=== PATIENT | male | born 1955 | race Caucasian/White ===

== ENCOUNTER → 2022-12-29 09:06 | Outpatient (REF) | payer MEDICARE, OTHER, SELFPAY | LOC: SDSPAT 09:06 | PROVIDERS: ATTENDING PHYSICIAN Surgery; FAMILY PHYSICIAN Internal Medicine; OTHER PHYSICIAN Internal Medicine Cardiovascular Disease | DX: L08.82 Omphalitis not of newborn (principal) | CPT/HCPCS: 36415; 93005 ==

== ENCOUNTER → 2023-04-06 07:35 | Outpatient (REF) | payer MEDICARE, OTHER, SELFPAY | LOC: MRI 07:35 | PROVIDERS: ATTENDING PHYSICIAN Internal Medicine | DX: R22.2 Localized swelling, mass and lump, trunk (principal) | CPT/HCPCS: 72197; A9575 ==

== ENCOUNTER → 2023-04-18 11:24 | Outpatient (REF) | payer MEDICARE, OTHER, SELFPAY ==
[2023-04-18 12:50] LABS: Glycohemoglobin (HgbA1c) 10.2 % (4.0-5.6)
[2023-04-18 12:54] LABS: ALT (SGPT) 23 U/L (0-50); AST (SGOT) 32 U/L (17-59); Albumin 3.9 g/dl (3.5-5.0); Alkaline Phosphatase 165 U/L (38-126); Blood Urea Nitrogen 8 mg/dl (9-20); Blood Urea Nitrogen 9 mg/dl (9-20); Calcium 8.8 mg/dl (8.4-10.2); Carbon Dioxide 27 mmol/L (22-30); Chloride 101 mmol/L (98-107); Glucose 251 mg/dl (70-99); HDL Cholesterol 36 mg/dl; LDL Cholesterol, Calculated 37 mg/dl; Potassium 4.4 mmol/L (3.5-5.1); Sodium 133 mmol/L (135-145); Total Bilirubin 1.1 mg/dl (0.2-1.3); Total Cholesterol 107 mg/dl (50-199); Total Protein 6.4 g/dl (6.3-8.2); Triglyceride 170 mg/dl (10-149); Very Low Density Lipoprotein 34 mg/dl (0-30); eGFR > 60.00
[2023-04-18 13:03] LABS: Microalbumin, Random Urine 0.7 mg/dl (0.6-1.7); Microalbumin/creatinine Ratio 3.2 mg/g
[2023-04-18 13:24] LABS: TSH 0.73 uIU/ml (0.47-4.68)
== END ==
LOC: REG 11:24
PROVIDERS: ATTENDING PHYSICIAN Internal Medicine; FAMILY PHYSICIAN Internal Medicine
DX: E11.65 Type 2 diabetes mellitus with hyperglycemia (principal); Z79.4 Long term (current) use of insulin; R22.2 Localized swelling, mass and lump, trunk; Z01.812 Encounter for preprocedural laboratory examination
CPT/HCPCS: 36415; 80053; 80061; 82043; 82565; 82570; 83036; 84443; 84520

== ENCOUNTER → 2023-05-21 09:22 | Outpatient (REF) | payer MEDICARE, OTHER, SELFPAY | LOC: PAVMRI 09:22 | PROVIDERS: ATTENDING PHYSICIAN Orthopaedic Surgery; FAMILY PHYSICIAN Internal Medicine | DX: M25.512 Pain in left shoulder (principal) | CPT/HCPCS: 73221 ==

== ENCOUNTER → 2023-07-23 13:40 | Outpatient (REF) | payer MEDICARE, OTHER, SELFPAY | LOC: HWRAD 13:40 | PROVIDERS: ATTENDING PHYSICIAN Nurse Practitioner | DX: R05.1 Acute cough (principal); R06.02 Shortness of breath | CPT/HCPCS: 71046 ==

== ENCOUNTER → 2023-08-20 08:42 | Outpatient (REF) | payer MEDICARE, OTHER, SELFPAY ==
[2023-08-20 13:36] LABS: Microalbumin, Random Urine 6.5 mg/dl (0.6-1.7)
[2023-08-20 13:38] LABS: Microalbumin/creatinine Ratio 32.5 mg/g
[2023-08-20 13:41] LABS: ALT (SGPT) 31 U/L (0-50); AST (SGOT) 35 U/L (17-59); Alkaline Phosphatase 174 U/L (38-126); Blood Urea Nitrogen 11 mg/dl (9-20); Calcium 9.3 mg/dl (8.4-10.2); Carbon Dioxide 23 mmol/L (22-30); Chloride 102 mmol/L (98-107); Glucose 227 mg/dl (70-99); HDL Cholesterol 36 mg/dl; LDL Cholesterol, Calculated 32 mg/dl; Potassium 4.1 mmol/L (3.5-5.1); Sodium 137 mmol/L (135-145); Total Bilirubin 0.7 mg/dl (0.2-1.3); Total Cholesterol 109 mg/dl (50-199); Total Protein 6.4 g/dl (6.3-8.2); Triglyceride 206 mg/dl (10-149); Very Low Density Lipoprotein 41 mg/dl (0-30); eGFR > 60.00
[2023-08-20 13:45] LABS: Glycohemoglobin (HgbA1c) 9.2 % (4.0-5.6)
[2023-08-20 14:03] LABS: TSH 2.06 uIU/ml (0.47-4.68)
== END ==
LOC: HWLAB 08:42
PROVIDERS: ATTENDING PHYSICIAN Internal Medicine; FAMILY PHYSICIAN Internal Medicine
DX: E11.9 Type 2 diabetes mellitus without complications (principal)
CPT/HCPCS: 36415; 80053; 80061; 82043; 82570; 83036; 84443

== ENCOUNTER → 2023-08-21 12:27 | Outpatient (REF) | payer MEDICARE, OTHER, SELFPAY | LOC: HWRAD 12:27 | PROVIDERS: ATTENDING PHYSICIAN Internal Medicine Critical Care Medicine; FAMILY PHYSICIAN Internal Medicine | DX: R06.00 Dyspnea, unspecified (principal); R07.89 Other chest pain | CPT/HCPCS: 71275; Q9967 ==

== ENCOUNTER → 2023-08-28 07:14 | Outpatient (REF) | payer MEDICARE, OTHER, SELFPAY | LOC: HWRAD 07:14 | PROVIDERS: ATTENDING PHYSICIAN Internal Medicine | DX: R22.2 Localized swelling, mass and lump, trunk (principal); T14.8XXA Other injury of unspecified body region, initial encounter | CPT/HCPCS: 76705 ==

== ENCOUNTER 2023-10-08 06:16 | Day surgery (SDC) | payer MEDICARE, OTHER, SELFPAY ==
[2023-10-08] VITALS (13 sets, daily range): BP systolic 132–180; BP diastolic 74–118; BMI 48.0
[2023-10-08] MEDS: TYLENOL 1000 MG PO (08:26)
[2023-10-08] MEDS: CELEBREX 200 MG PO (08:27)
[2023-10-08] MEDS: NORMOSOL-R/PLASMALYTE-A 1000 IV (08:30)
[2023-10-08 08:33] LABS: Glucose - Point of Care 187 mg/dl (70-99)
[2023-10-08 10:49] LABS: Glucose - Point of Care 146 mg/dl (70-99)
[2023-10-08 12:56] LABS: Glucose - Point of Care 223 mg/dl (70-99)
[2023-10-08] MEDS: NOVOLOG vial 2 UNITS SC (13:15)
== END 2023-10-08 13:45 | disposition home or self-care (01) ==
LOC: SDS 06:16
PROVIDERS: ATTENDING PHYSICIAN Orthopaedic Surgery
DX: M75.112 Incomplete rotator cuff tear or rupture of left shoulder, not specified as traumatic (principal); M75.42 Impingement syndrome of left shoulder
CPT/HCPCS: 29827; 29826; 82962; C1713

== ENCOUNTER 2023-12-11 09:52 | Day surgery (SDC) | payer MEDICARE, OTHER, SELFPAY ==
[2023-11-30 08:50] VITALS: BMI 50.8
[2023-12-11] VITALS (8 sets, daily range): BP systolic 130–162; BP diastolic 75–96; BMI 46.7
--- NOTE | 2023-12-11 14:19 | ITS.CL.IMPLP ---
Instruction Dean - Implant Loop
Implant Loop
Procedure Report:
Date of Procedure: December 11, 2023.
Procedure: Insertable Loop Recorder Explant.
Indication: Loop at the end of service. 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 The device has detected AFib and the patient was placed on Eliquis. The device has also shown symptomatic PVCs.
Performing physician: Leno Mcduffie MD, [facility].
Explant: [id number]; Jot Dx, Model# [id number]; Serial# [id number], implanted on November 15, 2021
Technique: A time out was performed per protocol. The patient was prepped and draped in the usual fashion. Anesthesia was administered by the anesthesia staff. Local anesthetic was applied to the left prepectoral subcutaneous tissue. An incision
was made over the superior aspect of the device. Dissection was carried to the capsule. The capsule was entered. The old device was explanted. The pocket appeared normal. Hemostasis was excellent. The pocket was irrigated saline. The incision was
closed with 4-0 Monocryl suture. The skin was closed with steri-strips. The estimated blood loss was less than 0.5 mL. There were no complications. No fluoroscopy was used.
Conclusion: Uncomplicated insertable loop explantation.
Recommendation: Routine incision care.
cc: Tiana Jasso MD and Jeevan Cole MD.
== END 2023-12-11 15:20 | disposition home or self-care (01) ==
LOC: CATH 09:52
PROVIDERS: ATTENDING PHYSICIAN Internal Medicine Cardiovascular Disease; FAMILY PHYSICIAN Internal Medicine; OTHER PHYSICIAN Internal Medicine Cardiovascular Disease
DX: Z09 Encounter for follow-up examination after completed treatment for conditions other than malignant neoplasm (principal); Z79.01 Long term (current) use of anticoagulants; I48.91 Unspecified atrial fibrillation; I49.3 Ventricular premature depolarization; E11.319 Type 2 diabetes mellitus with unspecified diabetic retinopathy without macular edema; E11.36 Type 2 diabetes mellitus with diabetic cataract; E66.01 Morbid (severe) obesity due to excess calories; E78.5 Hyperlipidemia, unspecified; Z86.73 Personal history of transient ischemic attack (TIA), and cerebral infarction without residual deficits; F32.A Depression, unspecified; F41.9 Anxiety disorder, unspecified; G47.33 Obstructive sleep apnea (adult) (pediatric); I10 Essential (primary) hypertension; I25.10 Atherosclerotic heart disease of native coronary artery without angina pectoris; K21.9 Gastro-esophageal reflux disease without esophagitis; M19.90 Unspecified osteoarthritis, unspecified site; Z79.02 Long term (current) use of antithrombotics/antiplatelets; Z79.4 Long term (current) use of insulin; Z79.82 Long term (current) use of aspirin; Z79.84 Long term (current) use of oral hypoglycemic drugs; Z79.899 Other long term (current) drug therapy; Z88.1 Allergy status to other antibiotic agents; Z88.8 Allergy status to other drugs, medicaments and biological substances; Z96.653 Presence of artificial knee joint, bilateral
CPT/HCPCS: 33286

== ENCOUNTER 2024-01-12 16:54 | Inpatient (IN) | payer MEDICARE, OTHER, SELFPAY ==
[2024-01-12] VITALS (7 sets, daily range): BP systolic 126–170; BP diastolic 62–96; PULSE 81; BMI 47.2; BMI 49.1
[2024-01-12] MEDS: DILAUDID 1 MG IV ×4 (12:23→22:11)
[2024-01-12 12:30] LABS: % Basophils 0.6 % (0-2); % Eosinophils 1.3 % (0-6); % Immature Granulocytes 0.4 % (0-0.5); % Lymphocytes 8.8 % (20.5-51.1); % Monocytes 8.7 % (1.7-9.3); % Neutrophils 80.2 % (42.2-75.2); Absolute Eosinophils 0.1 10^3/uL (0-0.7); Absolute Lymphocytes 0.6 10^3/uL (1.2-3.4); Absolute Monocytes 0.6 10^3/uL (0.1-0.6); Absolute Neutrophils 5.6 10^3/uL (1.4-6.5); Hematocrit 39.4 % (39.0-52.0); Hemoglobin 12.2 g/dL (13.0-18.0); Mean Corpuscular Hgb 26.1 pg (27.0-31.0); Mean Corpuscular Volume 84.2 fL (80.0-94.0); Mean Platelet Volume 10.4 fL (7.4-10.4); Nucleated Red Blood Cells % 0 % (-); Platelet Count 175 10^3/uL (130-400); Red Blood Cell Count 4.68 10^6/uL (4.70-6.10); Red Cell Dist. Width 14.9 % (11.5-14.5)
[2024-01-12 12:43] LABS: ALT (SGPT) 34 U/L (0-50); AST (SGOT) 42 U/L (17-59); Alkaline Phosphatase 114 U/L (38-126); Blood Urea Nitrogen 9 mg/dl (9-20); Calcium 8.7 mg/dl (8.4-10.2); Carbon Dioxide 26 mmol/L (22-30); Chloride 101 mmol/L (98-107); Estimated Creatinine Clearance > 125 ml/min; Glucose 123 mg/dl (70-99); Potassium 4.1 mmol/L (3.5-5.1); Sodium 138 mmol/L (135-145); Total Protein 6.5 g/dl (6.3-8.2); eGFR > 60.00
--- NOTE | 2024-01-12 13:24 | ED.MUSCINJ ---
HPI-Injury
General
Chief Complaint: Musculo-Skeletal Complaint
Source: patient
Exam Limitations: none
Time Seen by Provider: 01/12/24 10:59
History of Present Illness-Injury
Initial Injury comments:
68-year-old male history of insulin-dependent diabetes A-fib on Eliquis presents complaining of gradually worsening right knee pain and swelling over the past 4 days. He denies associated fevers or chills. No prior history of gout. No known
injury. He had an appoint with orthopedics tomorrow however the pain worsened. He is by himself currently at home. He has been unable to bear weight secondary to the pain. He had his right knee replaced in 2016. He recently had a left shoulder
replacement several weeks ago.
Past History
Past History
ED Past Medical History: GERD, HTN, Hypercholesterolemia, IDDM, Psychiatric (Depression), Other (sleep apnea, CPAP) and Other (Diverticulitis, GI bleed)
ED Past Surgical History: Orthopedic (bilateral knee replacements) and Other (Left eye cataract)
Social History
Tobacco: Non-smoker
Alcohol: None
Drug: None
Personal:
Living: with family
Family History
Family History: Other (Brother with CAD at age 56. Mother had congestive heart failure. His father had a pacemaker.)
Phy Exam
Physical Exam
Physical Exam:
General: Well-appearing obese male no acute respiratory distress
Musculoskeletal exam: Right knee with moderate effusion range of motion is limited secondary to pain. He has full extension and flexion is limited to about 15 or 20 degrees. He is tender along the medial aspect of the knee
Skin: No overlying erythema or excessive warmth
Extremities: No cyanosis or edema
Injury Course
Orders/Labs/Results
Orders:
Orders
01/12/24 10:40
Knee, Right 4 or More Views [CR Knee- Right 4 Or More View*] Urgent
Comment:
Reason For Exam: pain
01/12/24 12:15
HYDROmorphone [Dilaudid] 1 mg IV NOW STA
01/12/24 12:19
CRP [C-Reactive Protein] Urgent
Complete Blood Count/With Diff Urgent
Comprehensive Metabolic Panel Urgent
Sed Rate [Erythrocyte Sed Rate] Urgent
01/12/24 13:26
Body Fluid Cell Count Urgent
What is the Body Fluid: joint
Date Specimen was Collected: 01/12/24
Time Specimen was Collected: 13:24
Comment: with DIFF
Body Fluid Crystals Urgent
What is the Body Fluid: joint
Date Specimen was Collected: 01/12/24
Time Specimen was Collected: 13:24
Fluid Culture with Gram Stain Urgent
ANGELO Source: Joint Fluid
Specimen Description:
Date Specimen was Collected: 01/12/24
Time Specimen was Collected: 13:24
01/12/24 15:36
Knee Immobilizer Right-Treatme ONCE
Dexamethasone Sod Phosphate [Decadron] 10 mg IV NOW STA
Abnormal Lab Results
01/12/24
12:19
RBC 4.68 L 10^6/uL
(4.70-6.10)
Hgb 12.2 L g/dL
(13.0-18.0)
MCH 26.1 L pg
(27.0-31.0)
MCHC 31.0 L g/dL
(33.0-37.0)
RDW 14.9 H %
(11.5-14.5)
Absolute Lymphs (auto) 0.6 L 10^3/uL
(1.2-3.4)
Neutrophils % 80.2 H %
(42.2-75.2)
Lymphocytes % 8.8 L %
(20.5-51.1)
ESR 25 H mm/hour
(0-20)
Glucose 123 H mg/dl
(70-99)
C-Reactive Protein 46.30 H mg/L
(0.0-10.00)
01/12/24 12:19
01/12/24 12:19
MDM/Problems Addressed
Differential Diagnosis Includes:
Right knee pain. Consider fracture versus inflammatory condition such as pseudogout or gout versus septic arthritis. No fever or obvious skin changes of septic arthritis clinically will check labs and inflammatory markers x-rays were ordered which
I reviewed and discussed with orthopedics. There is no acute finding
Serum white count is normal however CRP is 46 and elevated. After discussing with orthopedics we will drain the knee to evaluate for septic arthritis versus inflammatory condition.
The right knee was sterilely prepped with Betadine and anesthetized in a local fashion using 1% lidocaine. Using a superior lateral approach, the right knee was aspirated. Approximately 15 mL of initially clear/yellow fluid followed by
blood-tinged was aspirated from the knee. This will be sent for fluid analysis
*Critical Care Note
Total Time (30-74mins, 75-104mins- exclusive of procedures): Not Applicable
Update Note
Update Note:
She has a synovial fluid analyzed with a white blood cell count of over 30,000. No crystals seen. Relayed information again through orthopedics. White blood cell count in the fluid may be too high for a prosthetic joint. Recommendations were to
admit to follow cultures and evaluate for possible prosthetic joint infection
ED Attending Note
-
Portions of this chart may have been created with voice recognition software.� Occasional wrong word or��sound alike� substitutions may have occurred due to the inherent limitations of voice recognition software.
Discharge Plan
Departure
Patient Disposition: Admit
Date of Disposition: 01/12/24
Time of Disposition: 15:45
Admit to: Med/Surg
Presentation/result/management discussed w/ accepting MD/DO: Hospitalist
Discharge Problem:
Acute knee pain
Prescriptions:
No Action
quetiapine 100 MG tablet
200 mg PO HS
pantoprazole 40 MG tablet,delayed release (DR/EC)
40 mg PO BID
oxybutynin chloride 5 MG tablet
5 mg PO HS
verapamil 240 MG tablet extended release
240 mg PO DAILY
atorvastatin 40 MG tablet
40 mg PO DAILY Qty: 1 0RF
riboflavin (vitamin B2) 100 mg Tablet
100 mg PO DAILY
cyanocobalamin (vitamin B-12) 1,000 mcg Tablet
1,000 mcg PO DAILY
duloxetine 30 mg Capsule,Delayed Release(Dr/Ec)
30 mg PO DAILY
duloxetine 60 mg Capsule,Delayed Release(Dr/Ec)
60 mg PO HS
metformin 500 MG tablet
500 mg PO BID@0800,1700
aspirin 81 mg Tablet,Delayed Release (Dr/Ec)
81 mg PO DAILY
gabapentin 300 mg Capsule
300 mg PO BID
fluticasone propionate 50 mcg/actuation [place],Suspension
2 spray INTRANASAL PRN PRN (Reason: sinus congestion)
cholecalciferol (vitamin D3) 25 mcg (1,000 unit) Tablet
25 mcg PO DAILY
Eliquis 5 mg Tablet
5 mg PO BID
insulin degludec [Tresiba FlexTouch U-100] 100 unit/mL (3 mL) Insulin Pen
45 unit SC BID
oxycodone 5 mg tablet
10 mg PO BID PRN (Reason: Pain) Qty: 20 0RF
insulin aspart U-100 [Novolog FlexPen U-100 Insulin] 100 unit/mL (3 mL) Insulin Pen
40 unit SC MEALS
Referrals:
Tiana Jasso MD [Family Provider] -
Interventions
Interventions:
*Risk Screen - Suicide Last Done: 01/12/24 10:36
*General Assessment Last Done: 01/12/24 10:36
*Neglect/Abuse Screening Last Done: 01/12/24 10:36
ED- Fall Risk Assessment Last Done: 01/12/24 12:32
*ED COVID-19 Vaccine History Last Done: 01/12/24 11:46
ED-Musculoskeletal Assessment Last Done: 01/12/24 11:46
Discharge Date and Time
Print Language: TELUGU
[2024-01-12 13:34] LABS: Erythrocyte Sed Rate 25 mm/hour (0-20)
[2024-01-12 14:33] LABS: Body Fluid Mononuclear 8.5 %; Body Fluid Polymorphonuclear 91.5 %; Body Fluid WBC 30810 /CUMM
[2024-01-12 14:39] LABS: Body Fluid Second Tech ASW
--- NOTE | 2024-01-12 16:15 | HPS.HSE ---
Family Physician
-
Family Physician: Tiana Jasso
Chief Complaint
-
Right knee pain
History of Present Illness
68-year-old male history of insulin-dependent diabetes A-fib on Eliquis, obstructive sleep apnea presents complaining of gradually worsening right knee pain and swelling over the past 4 days. He denies associated fevers or chills. No known
injury. He had an appoint with orthopedics tomorrow however the pain worsened. He has been unable to bear weight secondary to the pain. He had his right knee replaced in 2016. Patient denied any headache, dizziness, syncopal episode. Patient
denied chest pain or short of breath. Patient denied abdominal pain, nausea, vomiting, diarrhea. Patient denied dysuria hematuria.
Then right knee was drained in the ER. WBCs elevated was elevated in the fluid and elevated CRP and ESR. Admitting for further management
Medical History
Past Medical History
Past Medical History: Reports Other
Additional Past Medical History:
Type 2 diabetes
Nonalcoholic fatty liver disease
Florez's esophagus
Obstructive sleep apnea
Depression
BPH
Hyperlipidemia
Coronary artery disease
TIA
Past Surgical History: Reports Other
Additional Past Surgical History:
Left total knee replacement
Left routine repair
Umbilical hernia repair
Mohs surgery
Social History
Tobacco: Non-smoker
Alcohol: None
Drug: None
Personal:
Living: Alone
Family History
Family History: Not pertinent
Allergies / Home Medications
Allergies reflects when Allergies were last updated in [facility].
Home Medications with original date entered in [facility]
Allergy/Medication List:
Allergies
Allergy/AdvReac Type Severity Reaction Status Date / Time
levofloxacin [From Levaquin] Allergy Rash Verified 12/11/23 10:10
sertraline [From Zoloft] Allergy Unknown Verified 12/11/23 10:10
bupropion [From Wellbutrin] AdvReac Cough Verified 12/11/23 10:10
lisinopril AdvReac Cough Verified 12/11/23 10:10
Home Medications
quetiapine 100 mg tablet 200 mg PO HS mental health/sleep 12/31/18
oxybutynin chloride 5 mg tablet 5 mg PO HS Urinary issue 08/23/19
pantoprazole 40 mg tablet,delayed release 40 mg PO BID Gastrointestinal issue 08/23/19
cyanocobalamin (vitamin B-12) 1,000 mcg tablet 1,000 mcg PO DAILY Supplement 10/16/21
riboflavin (vitamin B2) 100 mg tablet 100 mg PO DAILY Supplement 10/16/21
atorvastatin 40 mg tablet 40 mg PO DAILY High cholesterol #1 tab 11/15/21
verapamil 240 mg tablet,extended release 240 mg PO DAILY Blood pressure 11/15/21
aspirin 81 mg tablet,delayed release 81 mg PO DAILY Blood Clot Prevention/Tx 12/29/22
duloxetine 30 mg capsule,delayed release 30 mg PO DAILY mental health 12/29/22
duloxetine 60 mg capsule,delayed release 60 mg PO HS mental health 12/29/22
metformin 500 mg tablet 500 mg PO BID@0800,1700 Diabetes 12/29/22
apixaban 5 mg tablet (Eliquis) 5 mg PO BID Blood Clot Prevention/Tx 02/18/23
gabapentin 300 mg capsule 300 mg PO BID Neurological Condition 02/18/23
insulin degludec 100 unit/mL (3 mL) subcutaneous pen (Tresiba FlexTouch U-100 insulin) 60 unit SC BID Diabetes 02/18/23
insulin aspart U-100 100 unit/mL (3 mL) subcutaneous pen (Novolog FlexPen U-100 Insulin aspart) 45 unit SC MEALS 10/01/23
azelastine 137 mcg (0.1 %) nasal spray 1 spray intranasal BIDPRN PRN congestion 01/12/24
cholecalciferol (vitamin D3) 50 mcg (2,000 unit) tablet (Vitamin D3) 50 mcg PO DAILY 01/12/24
Review of Systems
-
Constitutional: Reports No Symptoms
EENT: Reports No Symptoms
Respiratory: Reports No Symptoms
Cardiac: Reports No Symptoms
Abdomen/GI: Reports No Symptoms
: Reports No Symptoms
Musculoskeletal: Reports Other (Right knee swelling)
Skin: Reports No Symptoms
Neurological: Reports No Symptoms
Endocrine: Reports No Symptoms
Hematologic/Lymphatic: Reports No Symptoms
Psych: Reports No Symptoms
Physical Exam
Vital Signs
Vital Signs
Temp Pulse Resp BP Pulse Ox
98.2 F 88 16 166/93 98
01/12/24 10:36 01/12/24 14:00 01/12/24 14:00 01/12/24 14:00 01/12/24 10:36
Physical Exam
General: Well Developed, Well Nourished and No Apparent Distress
HEENT: NormoCephalic, Moist mucous membranes and Atraumatic
Respiratory: Clear
Cardiac: S1/S2 and Regular Rhythm; No Murmur or Rub
GI: Soft, Non Tender, Non Distended and Normal Bowel Sounds; No Organomegaly
Rectal: Deferred by Provider
Musculoskeletal: No Clubbing, No Cyanosis and Other (Right knee edema)
Skin: No Rash
Neuro: AO x 3 and Nonfocal/grossly intact
Psych: Calm
Laboratory Results
-
01/12/24 12:19
01/12/24 12:19
Laboratory Results
Total Bilirubin 1.0 mg/dl (0.2-1.3) 01/12/24 12:19
AST 42 U/L (17-59) 01/12/24 12:19
ALT 34 U/L (0-50) 01/12/24 12:19
Alkaline Phosphatase 114 U/L (38-126) 01/12/24 12:19
Data Reviewed
-
Diagnostic Radiology: Report Reviewed by me
Lab Data: Labs Reviewed by me
Impression/Plan
-
# Right knee pain rule out septic arthritis vs GOUT
-ESR 25, CRP 46.30, fluid WBC 16650
-Ortho consulted
-Knee x-ray with impression of Status post right knee replacement which appears in satisfactory position.No radiographic evidence for acute fracture or dislocation.Suggestion of a small to moderate suprapatellar joint effusion.
-Fluid culture sent from ER
-Dilaudid and oxy as needed for pain
-iv ceftriaxone and vanco
-ID consulted
Paroxysmal atrial fibrillation
-hold Eliquis in anticipation of any procedure
#Essential hypertension
-Continue verapamil
#Type 2 diabetes with neuropathy
-Gabapentin continued
-NovoLog 30 with meals, Tresiba 40 units twice a day
-Continue metformin
#GERD
-Continue Protonix
#Hypercholesterolemia
-Continue statin
#Depression
-Continue duloxetine, Seroquel
#Sleep apnea
-CPAP
DVT prophylaxis
eliquis
Full Code
[2024-01-12] MEDS: ROCEPHIN 1000 MG IV (17:12)
[2024-01-12] MEDS: STERILE WATER FOR INJECTION 10 ML IV (17:12)
--- NOTE | 2024-01-12 17:25 | PHA.VAN.IN ---
Assessment
- Assessment
Renal Function: Appears similar to baseline
Concomitant Antimicrobials: ROCEPHIN
- Previous Dosing Experience
Previous Regimen: NONE
AUC Dosing Plan
- Dosing Variables
Dosing Weight (kg): 153.3
Dosing CrCl (ml/min): 100
Vd coefficient (L/kg): 0.5
- Empiric Dosing
Initial / Loading Dose: 2GM
Maintenance Regimen: 1500MG IV Q12H
Estimated AUC (mcg*h/mL): 477
Estimated Peak (mcg*h/mL): 30.1
Estimated Trough (mcg/ml): 12
Estimated Half Life (H): 7.9
Pharmacokinetics Vancomycin I
- -
Patient Age: 68
Patient Sex: Male
Vancomycin Day #: 1
Indication: Bone And Joint ([R] KNEE SEPTIC ARTHRITIS)
Requesting Provider: EVA
Pertinent Antimicrobial Allergies:
Allergies
levofloxacin [From Levaquin] Allergy (Verified 12/11/23 10:10)
Rash
Height / Weight:
Height 5 ft 11 in
Actual Weight 153.3 kg
Pertinent Past Medical History: IDDM
- Vital Signs / Lab Results
Temp Pulse Resp BP Pulse Ox
98.2 F 88 16 166/93 98
01/12/24 10:36 01/12/24 14:00 01/12/24 14:00 01/12/24 14:00 01/12/24 10:36
Lab Results - Hematology
01/12/24
12:19
WBC 7.0
Lab Results - Chemistry
01/12/24
12:19
BUN 9
Creatinine 0.7
Estimated Creat Clear > 125
Albumin 4.0
Microbiology Results
01/12/24 13:26 Gram Stain - Preliminary
Joint Fluid
[2024-01-12] MEDS: VANCOCIN 540 MG IV (17:35)
--- NOTE | 2024-01-12 17:41 | W.PN.UPDATE ---
Update Note
Progress Note Update
This is an addendum to the H&P written by Aster Alvarez on 01/12/2024. Patient seen and examined independently with MACHINE [employer]PER.
68-year-old male past medical history of paroxysmal atrial fibrillation on Eliquis, hypertension, hyperlipidemia, depression, obstructive sleep apnea, obesity, diabetes, right knee replacement 4 years ago, left shoulder replacement 2 months ago
presenting with right knee pain/swelling for the past 4 days.
No fevers or chills.
Labs unremarkable.
Knee x-ray shows previous knee replacement in satisfactory position. No evidence of fracture or dislocation. Small to moderate suprapatellar joint effusion.
Joint aspiration performed. Fluid culture shows many white blood cells without organisms. Culture sent. 30,000 WBC. No crystals seen. Ortho consulted. Concern for potential inflammatory/septic arthritis/prosthetic joint infection. Hold
Eliquis.
Vancomycin/ceftriaxone. ID consulted.
[2024-01-12 20:40] LABS: Glucose - Point of Care 99 mg/dl (70-99)
[2024-01-12] MEDS: GLUCOPHAGE 500 MG PO (21:13)
[2024-01-12] MEDS: SEROQUEL 200 MG PO (21:14)
[2024-01-12] MEDS: PROTONIX 40 MG PO (21:14)
[2024-01-12] MEDS: CYMBALTA DELAYED RELEASE 60 MG PO (21:14)
[2024-01-12] MEDS: NEURONTIN 300 MG PO (21:14)
[2024-01-12] MEDS: DITROPAN 5 MG PO (21:14)
[2024-01-12] MEDS: NOVOLOG FLEXPEN 30 UNITS SC (21:15)
[2024-01-12] MEDS: LANTUS 0.4 UNITS SC (22:00)
--- NOTE | 2024-01-12 23:46 | TRANSFER ---
Pt arrived to 2S @2009 dx right knee septic arthritis, immobilizer in place. Knee is reddened w +1 edema, positive DP pulse. Pt AAOx3 able to make all needs known. VS WNL. Assessment as documented. Bed in lowest position, call maya within reach.
[2024-01-13 05:38] VITALS: BMI 49.1
[2024-01-13] MEDS: VANCOCIN 530 MG IV (05:44)
[2024-01-13 07:00] VITALS: BP 180/101
--- NOTE | 2024-01-13 07:59 | CON.ORTHO ---
Addendum entered and electronically signed by Gerry Rivera MD 01/14/24 07:07:
I evaluated the patient at bedside. He reports 3 days of acute onset atraumatic right knee pain. He is sp R TKA by Dr. Chamberlain with [facility]. The knee was doing well until Thursday when he woke up with acute pain. He underwent aspiration
with synovail fluid findings concerning for PJI. No subjective fevers or chills. I discussed the findings and options with the patient. Discussed I&D with liner exchange for R knee. Discussed indications for two stage exchange for chronic infection
but that with the acutity of his infection the plan will be for I&D and liner exchange. Shared decision was to plan with surgery today. NPO. Will send deep cultures. Hold ABX for now.
Original Note:
Consultation
-
Date/Time Consultation Requested: 01/12/2024; time unknown
Date/Time Consultation Performed: 01/13/2024; 0700
Requesting Provider: unknown
Performing Provider: Juana Horne PA-C for Dr. Gerry Rivera
Reason for Consultation: Right knee pain and swelling; s/p TKA
Consultation - Orthopedics
History
Mr. Perkins is a 68-year-old male with past medical history of insulin-dependent diabetes, A-fib on Eliquis, and obstructive sleep apnea. He is status post right total knee arthroplasty performed by Dr. Chamberlain about 4 years ago. He also recently
underwent left shoulder arthroscopy with [facility] under the direction of Dr. Simeon, and has been working with in-home PT since then. He presented to ED due to progressively worsening knee pain and swelling over the last 4 days. He denies any falls,
injury or inciting event. He endorses pain generally throughout the knee, but states the pain is exacerbated with weight bearing activities. He denies fever, chills or other constitutional symptoms.
He lives at home with his . Unfortunately, his is currently staying in [facility] rehab after undergoing surgery for a hip fracture. He ambulates without assistance at baseline.
Allergies / Home Medications
Allergy/AdvReac Type Severity Reaction Status Date / Time
bupropion [From Wellbutrin] Allergy Cough Verified 01/12/24 17:06
levofloxacin [From Levaquin] Allergy Rash Verified 12/11/23 10:10
lisinopril Allergy Cough Verified 01/12/24 17:06
sertraline [From Zoloft] Allergy Unknown Verified 12/11/23 10:10
�Medication �Instructions �Recorded
quetiapine 100 mg tablet 200 mg PO HS mental health/sleep 12/31/18
oxybutynin chloride 5 mg tablet 5 mg PO HS Urinary issue 08/23/19
pantoprazole 40 mg tablet,delayed 40 mg PO BID Gastrointestinal issue 08/23/19
release
cyanocobalamin (vitamin B-12) 1,000 mcg PO DAILY Supplement 10/16/21
1,000 mcg tablet
riboflavin (vitamin B2) 100 mg 100 mg PO DAILY Supplement 10/16/21
tablet
atorvastatin 40 mg tablet 40 mg PO DAILY High cholesterol #1 11/15/21
tab
verapamil 240 mg tablet,extended 240 mg PO DAILY Blood pressure 11/15/21
release
aspirin 81 mg tablet,delayed 81 mg PO DAILY Blood Clot 12/29/22
release Prevention/Tx
duloxetine 30 mg capsule,delayed 30 mg PO DAILY mental health 12/29/22
release
duloxetine 60 mg capsule,delayed 60 mg PO HS mental health 12/29/22
release
metformin 500 mg tablet 500 mg PO BID@0800,1700 Diabetes 12/29/22
apixaban 5 mg tablet (Eliquis) 5 mg PO BID Blood Clot 02/18/23
Prevention/Tx
gabapentin 300 mg capsule 300 mg PO BID Neurological 02/18/23
Condition
insulin degludec 100 unit/mL (3 60 unit SC BID Diabetes 02/18/23
mL) subcutaneous pen (Tresiba
FlexTouch U-100 insulin)
insulin aspart U-100 100 unit/mL 45 unit SC MEALS 10/01/23
(3 mL) subcutaneous pen (Novolog
FlexPen U-100 Insulin aspart)
azelastine 137 mcg (0.1 %) nasal 1 spray intranasal BIDPRN PRN 01/12/24
spray congestion
cholecalciferol (vitamin D3) 50 50 mcg PO DAILY 01/12/24
mcg (2,000 unit) tablet (Vitamin
D3)
Vital Signs / Lab Results
Temp Pulse Resp BP Pulse Ox
97.3 F 81 18 180/101 96
01/13/24 07:00 01/13/24 07:00 01/13/24 07:00 01/13/24 07:00 01/13/24 07:00
01/12/24 12:19
01/12/24 12:19
XR Right Knee IMPRESSION:
Status post right knee replacement which appears in satisfactory position.
No radiographic evidence for acute fracture or dislocation.
Suggestion of a small to moderate suprapatellar joint effusion.
Aspiration performed in the ED. Gram stain reveals many WBC, no organisms. Cell count with 30k WBC, 91% PMN. No crystals seen.
Directed exam of the right lower extremity reveals moderate effusion about the right knee. Well healed surgical incision over the anterior knee. Generalized tenderness to palpation about the right knee. ROM significantly limited secondary to patient
pain. Calf soft and nontender. Patient able to wiggle toes, plantar and dorsiflex ankle. Neurovascularly intact distally.
Assessment / Plan
Right knee pain and effusion s/p right TKA; likely PJI
--Unfortunately, the fluid aspirated from Iron's knee is suggestive of a prosthetic joint infection. We will continue to monitor the cultures. We recommend proceeding with irrigation and debridement with polyethylene liner exchange. This will be
performed tomorrow under the direction of Dr. Rivera. We discussed the risks, benefits, alternatives, recovery process and potential complications in detail. He verbalized understanding that recurrent infection is possible, as well as the need for
subsequent surgeries. I also emphasized the importance of strict blood sugar control post-operatively. He also verbalized understanding that he will likely require at least 6 weeks of IV antibiotics following surgery. He would like to proceed with
surgical intervention. Surgical and blood consent is signed and on the patient's chart.
--NPO after midnight for OR 01/13.
--Patient may utilize knee immobilizer for comfort, but this is not required. He may be weight bearing as tolerated until surgery.
--Pain control per primary.
--Antibiotics per primary and IM. Currently on Vanco and ceftriaxone.
--Irrigation ordered to OR.
--Orthopedics will continue to follow along.
[2024-01-13] MEDS: CALAN EXTENDED RELEASE 240 MG PO (08:07)
[2024-01-13] MEDS: GLUCOPHAGE 500 MG PO ×2 (08:08→17:02)
[2024-01-13] MEDS: CYMBALTA DELAYED RELEASE 30 MG PO (08:08)
[2024-01-13] MEDS: NEURONTIN 300 MG PO ×2 (08:08→21:00)
[2024-01-13] MEDS: PROTONIX 40 MG PO ×2 (08:08→21:00)
[2024-01-13] MEDS: ASPIR LOW (ENTERIC COATED) 81 MG PO (08:08)
[2024-01-13] MEDS: VITAMIN D3 (cholecalciferol) 50 MCG PO (08:08)
[2024-01-13] MEDS: LANTUS 0.4 UNITS SC (08:09)
[2024-01-13] MEDS: LIPITOR 40 MG PO (08:09)
[2024-01-13 08:10] LABS: Glucose - Point of Care 146 mg/dl (70-99)
[2024-01-13] MEDS: NOVOLOG FLEXPEN-LOW RESISTANCE SC ×2 (08:10→17:02)
[2024-01-13] MEDS: NOVOLOG FLEXPEN 30 UNITS SC ×3 (08:14→17:02)
--- NOTE | 2024-01-13 09:00 | PHA.VAN.FU ---
Vancomycin Assessment / Plan
- Assessment
Renal Function: Stable
WBC's are: WNL
In the past 24 hrs, patient has been: Afebrile
Concomitant Antimicrobials: ceftriaxone
- Dosing Plan
Adjust Regimen to: Vanc 1750mg Q12H starting at 1800
New Regimen Predicts: AUC (448), Peak (30.1), Trough (10.2)
- Monitoring Plan
No level(s) ordered at this time: consider levels in next few days
- Follow Up
Pharmacy will continue to follow.
Vancomycin Follow UP
- -
Patient Age: 68
Patient Sex: Male
Vancomycin Day #: 2
Indication: Bone And Joint
Requesting Provider: Jace Alvarez
Pertinent Antimicrobial Allergies:
levofloxacin - Rash
Height / Weight:
Height 5 ft 11 in
Actual Weight 159.71 kg
Pertinent Past Medical History: BMI ~49, DM
- Vital Signs / Lab Results
Temp Pulse Resp BP Pulse Ox
97.3 F 81 18 180/101 96
01/13/24 07:00 01/13/24 08:07 01/13/24 07:00 01/13/24 08:07 01/13/24 07:00
Lab Results - Hematology
01/12/24
12:19
WBC 7.0
Lab Results - Chemistry
01/12/24
12:19
BUN 9
Creatinine 0.7
Estimated Creat Clear > 125
Albumin 4.0
Microbiology Results
01/12/24 13:26 Gram Stain - Preliminary
Joint Fluid
[2024-01-13 09:04] LABS: Glycohemoglobin (HgbA1c) 8.8 % (4.0-5.6)
[2024-01-13 10:55] VITALS: BMI 49.1
--- NOTE | 2024-01-13 11:44 | W.PN.HOSP.TC ---
Today's Communication/Plan
-
OR tomorrow
Assessment / Plan
Assessment / Plan
Assessment/plan
Septic arthritis right knee
-ESR 25, CRP 46.30, fluid WBC 35064
-Ortho consulted
-Knee x-ray with impression of Status post right knee replacement which appears in satisfactory position.No radiographic evidence for acute fracture or dislocation.Suggestion of a small to moderate suprapatellar joint effusion.
-Fluid culture sent from ER
-Dilaudid and oxy as needed for pain
-iv ceftriaxone and vanco
-ID consulted
01/12
Seen by orthopedic, plan for OR tomorrow
Paroxysmal atrial fibrillation
-hold Eliquis in anticipation of any procedure
Essential hypertension
-Continue verapamil
Type 2 diabetes with neuropathy
-Gabapentin continued
-NovoLog 30 with meals, Tresiba 40 units twice a day
-Continue metformin
GERD
-Continue Protonix
Hypercholesterolemia
-Continue statin
Depression
-Continue duloxetine, Seroquel
Sleep apnea
-CPAP
CODE STATUS: Full code
DVT prophylaxis: Eliquis on hold
Diet: Diabetic diet, n.p.o. after midnight
I spent 65 minutes giving direct care to the patient including chart review, talking to consultants, talking to treatment team, family communication.
Anticipated Discharge: > 48 hours
Subjective/Interval History
-
Date of Service: January 13, 2024
Patient seen and examined at bedside, denies any chest pain or shortness of breath, no abdominal pain, no nausea, no vomiting, no diarrhea or constipation.
for OR tomorrow by Ortho.
N.p.o. after
Objective Data
-
Vital Signs:
Vital Signs
Temp Pulse Resp BP Pulse Ox
97.3 F 81 18 180/101 96
01/13/24 07:00 01/13/24 08:07 01/13/24 07:00 01/13/24 08:07 01/13/24 08:15
I&O
01/12/24 01/13/24 01/14/24
06:59 06:59 06:59
Intake Total 960 / 960
Output Total 475 / 475
Balance 485 / 485
Physical Exam
-
General: Well Developed, Well Nourished, No Apparent Distress and Comfortable
HEENT: Normocephalic, Atraumatic, Moist Mucous Membranes, No Ptosis, PERRLA and Nose Appears Normal
Respiratory: Clear to Auscultation and Non Labored Respirations
Cardiac: Regular Rhythm and S1/S2
Breast: Deferred by me
GI: Soft, Nontender, Nondistended and Normal Bowel Sounds
Genito-urinary: No Costovertebral Tender
Musculoskeletal: No Clubbing, No Cyanosis, No Edema and Other (Right knee immobilizer)
Skin: Warm
Neuro: Awake, Alert, Oriented, AO x 3 and No Motor Deficits
Psych: Calm
Data Reviewed
-
Diagnostic Radiology: Image personally visualized and interpreted and Report Reviewed by me
CT Scan: Image personally visualized and interpreted and Report Reviewed by me
Ultrasound: Image personally visualized and interpreted and Report Reviewed by me
MRI: Image personally visualized and interpreted and Report Reviewed by me
Medical Tests (Nuc Med, Echo etc): Image personally visualized and interpreted and Report Reviewed by me
Labs: Labs Reviewed by me
Old Records: Reviewed
--- NOTE | 2024-01-13 11:58 | CM ---
Adm dx - septic arthritis
Met with pt at bedside
Pt reports he lives with his in a 2 story home; 3 steps to enter(ramp access), 13 steps to 2nd fl. is currently in [facility] for rehab
Reports independent, retired, drives
DME - rolling walker, single point cane, shower chair, commode, raised toilet seat, toilet rails, shower rails
SNF - [facility] in past
HH - current with [facility]
Has ride home at discharge
PCP - Tiana Jasso
Pharm - [facility]
For OR tomorrow for irrigation and debridement with polyethylene liner exchange
Cultures pending from knee aspiration done in ED
Plan - TBD post op based on needs. CM will follow
[2024-01-13 12:01] LABS: Glucose - Point of Care 213 mg/dl (70-99)
[2024-01-13] MEDS: NOVOLOG FLEXPEN-LOW RESISTANCE 2 UNITS SC (12:12)
--- NOTE | 2024-01-13 12:45 | CON.ID ---
Addendum entered and electronically signed by Marlys Davidson MD 01/13/24 16:12:
I personally performed a history and physical exam of the patient and discussed management with the resident. I reviewed the resident's note and agree with most of the documented findings and plan of care HPI/CC.
# Late right knee PJI
- Synovial fluid >30,000 wbc, 91%PMN, no crystals
Gram stain: no organism. Cx: NEG TO DATE
- To OR tomorrow - hopefully 2 stage revision
PLEASE OBTAIN DEEP aerobic and anaerobic cultures.
-Synovial cx neg to date. Will hold Vanc/ceftriaxone to increase intra-op cx yield.
# DM uncontrolled.
- Recommend tight glucose control.
Original Note:
Consultation
-
Date/Time Consultation Requested: 01/12/2024 17:01
Date/Time Consultation Performed: 01/13/2024 12:46
Requesting Provider: Aster Alvarez CRNP
Performing Provider: Marlys Davidson MD
Reason for Consultation: Right knee infection
Chief Complaint / Past History
Chief Complaint
Right knee pain
History of Present Illness
This is a 68-year-old male with past medical history of paroxysmal atrial fibrillation on Eliquis, hypertension, hyperlipidemia, left shoulder replacement 2 months ago, right total knee arthroplasty 2016 who presents to ER 01/12/2024 complaining
of right knee pain and swelling ongoing for the past week. Patient denies any injury to the knee. He reports knee swelling started all of a sudden. Pain was severe and he had already scheduled an appointment with orthopedics but to come to the ED
for evaluation and he had an appointment because of worsening pain. He denies fever, chills. He denies any history of gout. The patient states he has been unable to bear weight on the leg due to the severity of the pain. Has a history of right
total knee arthroplasty performed in 2016. On presentation to the ER, patient is afebrile with blood pressure normal . Laboratory evaluation showed WBC 7.0, CRP 46.30, ESR 25. Evaluation with right knee x-ray showed small to moderate suprapatellar
joint effusion. A joint aspiration was performed in the ED and fluid analysis showed fluid WBC 92845, 91% PMN, no crystals seen. Cultures of fluid sent out currently pending. He was started on vancomycin and ceftriaxone. We are consulted to
evaluate from an infectious disease standpoint.
Past History
Past Medical History: Other (Type 2 diabetes mellitus, nonalcoholic fatty liver disease, Florez's esophagus, obstructive sleep apnea, depression, BPH, hyperlipidemia, CAD, TIA)
Past Surgical History: Other (Right total knee arthroplasty, left shoulder replacement, umbilical hernia repair, left total knee arthroplasty (1998 2007))
Allergy History:
bupropion [From Wellbutrin] Allergy (Verified 01/12/24 17:06)
Cough
levofloxacin [From Levaquin] Allergy (Verified 12/11/23 10:10)
Rash
lisinopril Allergy (Verified 01/12/24 17:06)
Cough
sertraline [From Zoloft] Allergy (Verified 12/11/23 10:10)
Unknown
Medications Reviewed: Yes
Current Antibiotics:
Ceftriaxone
Vancomycin
Social History
Tobacco: Non-Smoker
Alcohol: None
Drug: None
Personal:
Living: Alone
Review of Systems
Review of Systems
General: Negative Fever or Chills
Cardiovascular: Negative Chest Pain
Respiratory: Negative Cough
Musculoskeletal: Joint Swelling
Vital Signs
Temp Pulse Resp BP Pulse Ox
97.3 F 81 18 180/101 96
01/13/24 07:00 01/13/24 08:07 01/13/24 07:00 01/13/24 08:07 01/13/24 08:15
Physical Exam
Physical Exam
Constitutional: No Acute Distress and Well Developed
Eyes: No Conjunctival Hemorrhage
Cardiovascular: Regular Rate and S1/S2
Pulmonary: Clear; Negative Wheezes, Rales or Rhonchi
Gastrointestinal: Soft, Non Tender, Non Distended and Normal Bowel Sounds
Extremities: Negative Edema
Musculoskeletal: Other (Right knee immobilizer present)
Neurological: Awake, Alert, Oriented and AO x 3
Psychological: Calm
Lab / Diagnostic Study Results
01/12/24 12:19
01/12/24 12:
Abs Immat Gran (auto) 0.0 10^3/uL (0-0.05) 01/12/24 12:19
Absolute Neuts (auto) 5.6 10^3/uL (1.4-6.5) 01/12/24 12:
Absolute Lymphs (auto) 0.6 10^3/uL (1.2-3.4) L 01/12/24 12:19
Absolute Monos (auto) 0.6 10^3/uL (0.1-0.6) 01/12/24 12:
Absolute Basos (auto) 0.0 10^3/uL (0-0.2) 01/12/24 12:19
Immature Gran % 0.4 % (0-0.5) 01/12/24 12:
Neutrophils % 80.2 % (42.2-75.2) H 01/12/24 12:
Lymphocytes % 8.8 % (20.5-51.1) L 01/12/24 12:
Monocytes % 8.7 % (1.7-9.3) 01/12/24 12:
Eosinophils % 1.3 % (0-6) 01/12/24 12:
Basophils % 0.6 % (0-2) 01/12/24 12:
ESR 25 mm/hour (0-20) H 01/12/24 12:19
C-Reactive Protein 46.30 mg/L (0.0-10.00) H 01/12/24 12:19
Microbiology Results
Micro:
01/12/24 13:26 Body Fluid Culture - Preliminary
Joint Fluid No Growth After 18-24 Hours
Gram Stain - Preliminary
X-ray of the right knee 01/12/2024: Status post right knee replacement which appears in satisfactory position. No radiographic evidence for acute fracture or dislocation. Suggestion of a small to moderate suprapatellar joint effusion.
Assessment / Plan
Assessment/plan
#Septic prosthetic right knee
#Right knee pain and effusion
#History of right total knee arthroplasty performed 2015
-S/p joint aspiration fluid analysis which showed fluid WBC 10381, 91% PMN, no crystals seen.
-Preliminary fluid cultures negative
-Initiated on IV ceftriaxone and vancomycin
-Ortho for irrigation and debridement tomorrow 01/13
-Remove infected hardware if able.
-Continue on Ceftriaxone and vancomycin. Will possibly need 6 weeks course.
-Follow CRP.
-Follow wbc, temp.
-follow clinically.
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
Paroxysmal atrial fibrillation
Essential hypertension
T2DM
GERD
Hypercholesterolemia
Depression
ÓSCAR
[2024-01-13 15:00] VITALS: BP 169/83
[2024-01-13 17:05] LABS: Glucose - Point of Care 137 mg/dl (70-99)
[2024-01-13] MEDS: DILAUDID 1 MG IV (17:05)
[2024-01-13] MEDS: FLUSH (NSS) 1 FLUSH IV (17:07)
[2024-01-13] MEDS: VITAMIN B-12 1000 MCG PO (17:17)
[2024-01-13] MEDS: CYMBALTA DELAYED RELEASE 60 MG PO (21:16)
[2024-01-13] MEDS: DITROPAN 5 MG PO (21:16)
[2024-01-13] MEDS: SEROQUEL 200 MG PO (21:16)
[2024-01-13 22:22] LABS: Glucose - Point of Care 135 mg/dl (70-99)
[2024-01-13 22:46] VITALS: PULSE 69
[2024-01-13] MEDS: LANTUS 0.2 UNITS SC (22:49)
[2024-01-13] MEDS: ROXICODONE 5 MG PO (22:49)
[2024-01-13 23:44] VITALS: BP 130/67
[2024-01-14] VITALS (12 sets, daily range): BP systolic 143–164; BP diastolic 74–95
[2024-01-14 05:54] LABS: Glucose - Point of Care 138 mg/dl (70-99)
[2024-01-14] MEDS: NOVOLOG FLEXPEN-LOW RESISTANCE SC ×2 (05:55→20:19)
[2024-01-14 06:38] LABS: Hematocrit 35.5 % (39.0-52.0); Hemoglobin 10.7 g/dL (13.0-18.0); Mean Corp Hgb Conc. 30.1 g/dL (33.0-37.0); Mean Corpuscular Hgb 25.4 pg (27.0-31.0); Mean Corpuscular Volume 84.3 fL (80.0-94.0); Platelet Count 181 10^3/uL (130-400); Red Blood Cell Count 4.21 10^6/uL (4.70-6.10); Red Cell Dist. Width 15.2 % (11.5-14.5); White Blood Cell Count 6.5 10^3/uL (4.8-10.8)
[2024-01-14 07:19] LABS: Blood Urea Nitrogen 11 mg/dl (9-20); Calcium 8.5 mg/dl (8.4-10.2); Carbon Dioxide 22 mmol/L (22-30); Chloride 100 mmol/L (98-107); Estimated Creatinine Clearance > 125 ml/min; Glucose 123 mg/dl (70-99); Potassium 3.8 mmol/L (3.5-5.1); Sodium 135 mmol/L (135-145); eGFR > 60.00
--- NOTE | 2024-01-14 07:41 | W.PN.UPDATE ---
Update Note
Progress Note Update
Patient with right total knee arthroplasty with PJI. This morning he is afebrile and white count normal. Prior cell count showed WBC greater than 30,000 and cultures thus far no growth. He is on vancomycin and ceftriaxone currently. Eliquis last
dose January 11, 2024. Antibiotic irrigation has been ordered. He has been NPO. Surgical consent is on chart and surgical plication marked.
[2024-01-14 08:19] LABS: Glucose - Point of Care 148 mg/dl (70-99)
[2024-01-14] MEDS: VITAMIN B-12 1000 MCG PO (08:24)
[2024-01-14] MEDS: CALAN EXTENDED RELEASE 240 MG PO (08:24)
[2024-01-14] MEDS: PROTONIX 40 MG PO ×2 (08:24→20:36)
[2024-01-14] MEDS: CYMBALTA DELAYED RELEASE 30 MG PO (08:24)
[2024-01-14] MEDS: LIPITOR 40 MG PO (08:24)
[2024-01-14] MEDS: VITAMIN D3 (cholecalciferol) 50 MCG PO (08:24)
[2024-01-14] MEDS: NEURONTIN 300 MG PO ×2 (08:25→20:36)
[2024-01-14] MEDS: GLUCOPHAGE 500 MG PO (08:25)
[2024-01-14] MEDS: ASPIR LOW (ENTERIC COATED) PO (08:27)
[2024-01-14] MEDS: NOVOLOG FLEXPEN SC ×3 (08:29→20:19)
[2024-01-14] MEDS: DILAUDID 1 MG IV ×3 (08:32→21:13)
--- NOTE | 2024-01-14 08:49 | W.PN.HOSP.TC ---
Today's Communication/Plan
-
OR today
Assessment / Plan
Assessment / Plan
Assessment/plan
Septic arthritis right knee
-ESR 25, CRP 46.30, fluid WBC 37315
-Ortho consulted
-Knee x-ray with impression of Status post right knee replacement which appears in satisfactory position.No radiographic evidence for acute fracture or dislocation.Suggestion of a small to moderate suprapatellar joint effusion.
-Fluid culture sent from ER
-Dilaudid and oxy as needed for pain
-iv ceftriaxone and vanco
-ID consulted
01/12
Seen by orthopedic, plan for OR tomorrow
01/13
for OR today
Continue vancomycin
Eliquis/aspirin hold
Paroxysmal atrial fibrillation
Currently sinus rhythm
-Eliquis on hold, resume after procedure if okay with orthopedic.
Continue verapamil
Essential hypertension
-Continue verapamil
Type 2 diabetes with neuropathy
-Gabapentin continued
-NovoLog 30 with meals, Tresiba 40 units twice a day
-Continue metformin
01/13
Lantus was given 20 units last night and held today morning.
Resume tonight at 40 units twice daily
Resume Premeal insulin after OR
GERD
-Continue Protonix
Hypercholesterolemia
-Continue statin
Depression
-Continue duloxetine, Seroquel
Sleep apnea
-CPAP
CODE STATUS: Full code
DVT prophylaxis: Eliquis on hold
Diet: OR today
I spent 65 minutes giving direct care to the patient including chart review, talking to consultants, talking to treatment team, family communication.
Anticipated Discharge: > 48 hours
Subjective/Interval History
-
Date of Service: January 14, 2024
Patient seen and examined at bedside, denies any chest pain, patient has shortness of breath laying flat but otherwise no abdominal pain, no nausea, no vomiting, no diarrhea or constipation.
For OR today.
Objective Data
-
Labs:
Laboratory Results
01/14/24
04:25
WBC 6.5
Hgb 10.7 L
Hct 35.5 L
Plt Count 181
Sodium 135
Potassium 3.8
Chloride 100
Carbon Dioxide 22
BUN 11
Creatinine 0.7
Glucose 123 H
Calcium 8.5
Vital Signs:
Vital Signs
Temp Pulse Resp BP Pulse Ox
97.8 F 80 14 157/89 92
01/14/24 07:38 01/14/24 07:38 01/14/24 07:38 01/14/24 08:24 01/14/24 07:38
I&O
01/13/24 01/14/24 01/15/24
06:59 06:59 06:59
Intake Total 960 / 960 2195 / 2195
Output Total 475 / 475 2049 / 2049
Balance 485 / 485 145 / 145
Physical Exam
-
General: Well Developed, Well Nourished, No Apparent Distress and Comfortable
HEENT: Normocephalic, Atraumatic, Moist Mucous Membranes, No Ptosis, PERRLA and Nose Appears Normal
Respiratory: Clear to Auscultation and Non Labored Respirations
Cardiac: Regular Rhythm and S1/S2
Breast: Deferred by me
GI: Soft, Nontender, Nondistended and Normal Bowel Sounds
Genito-urinary: No Costovertebral Tender
Musculoskeletal: No Clubbing, No Cyanosis, No Edema and Other (Right knee immobilizer)
Skin: Warm
Neuro: Awake, Alert, Oriented, AO x 3 and No Motor Deficits
Psych: Calm
--- NOTE | 2024-01-14 09:47 | W.PN.ID1 ---
Addendum entered and electronically signed by Marlys Davidson MD 01/14/24 12:50:
I saw and evaluated the patient. I reviewed the resident�s note and agree with findings and plan as documented in the resident�s note.
# Late right knee PJI
- Synovial fluid >30,000 wbc, 91%PMN, no crystals
Gram stain: no organism. Cx: NEG TO DATE x 48H. ? Cutibacterium acne
- To OR today - hopefully 2 stage revision
PLEASE OBTAIN DEEP aerobic and anaerobic cultures.
- Will hold Vanc/ceftriaxone to increase intra-op cx yield.
- Start ceftriaxone 2g IV q24h post-op.
# DM uncontrolled.
- Recommend tight glucose control.
Original Note:
Date of Service
Date of Service: January 14, 2024
Today's Communication
.
Assessment / Plan
Assessment/plan
#Late Right prosthetic joint infection
#Right knee pain and effusion
#History of right total knee arthroplasty performed 2015
-S/p joint aspiration fluid analysis which showed fluid WBC 48921, 91% PMN, no crystals seen.
-Cultures negative to date. Gram stain no organism.
-Ortho for I&D and liner exchange today 01/13
-obtain Deep aerobic and anaerobic cultures
-Initiated on IV ceftriaxone and vancomycin but discontinued yesterday evening to increase intra-op culture yield
-After procedure, start IV ceftriaxone only.
-Follow wbc, temp.
-follow clinically.
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
Paroxysmal atrial fibrillation
Essential hypertension
T2DM
GERD
Hypercholesterolemia
Depression
ÓSCAR
Chief Complaint
-: Other (Right knee pain)
Subjective / Review of Systems
Review of Systems: No Fever and No Chills
Vital Signs / Physical Exam
Vital Signs
Vital Signs
Temp Pulse Resp BP Pulse Ox
97.8 F 80 14 157/89 92
01/14/24 07:38 01/14/24 07:38 01/14/24 07:38 01/14/24 08:24 01/14/24 07:38
Physical Exam
Constitutional: No Acute Distress
Cardiovascular: Regular Rate and S1/S2
Pulmonary: Clear
Gastrointestinal: Soft, Non Tender, Non Distended and Normal Bowel Sounds
Musculoskeletal: Joint Swelling (right knee) and Other (Right knee immobilizer present.)
Neurological: AO x 3
Objective Data
Lab Data
Lab Results
01/14/24 04:25
01/14/24 04:25
ESR 25 mm/hour (0-20) H 01/12/24 12:19
Estimated Creat Clear > 125 ml/min 01/14/24 04:25
Total Bilirubin 1.0 mg/dl (0.2-1.3) 01/12/24 12:19
AST 42 U/L (17-59) 01/12/24 12:19
ALT 34 U/L (0-50) 01/12/24 12:19
Alkaline Phosphatase 114 U/L (38-126) 01/12/24 12:19
C-Reactive Protein 46.30 mg/L (0.0-10.00) H 01/12/24 12:19
Most recent labs reviewed.
Micro Results:
01/12/24 13:26 Body Fluid Culture - Preliminary
Joint Fluid No Growth After 48 Hours
Gram Stain - Preliminary
X-ray of the right knee 01/12/2024: Status post right knee replacement which appears in satisfactory position. No radiographic evidence for acute fracture or dislocation. Suggestion of a small to moderate suprapatellar joint effusion.
[2024-01-14 11:56] LABS: Glucose - Point of Care 152 mg/dl (70-99)
[2024-01-14] MEDS: NOVOLOG FLEXPEN-LOW RESISTANCE 1 UNITS SC (11:58)
[2024-01-14 19:05] LABS: Glucose - Point of Care 160 mg/dl (70-99)
--- NOTE | 2024-01-14 19:27 | OR.RPT ---
Operative Report
Operative Report
Orthopaedic Surgery Operative Note
DATE OF OPERATION: 01/14/2024
PREOPERATIVE DIAGNOSES:
Right prosthetic joint infection
POSTOPERATIVE DIAGNOSES:
Same
OPERATION PERFORMED:
Single component revision right total knee replacement with polyethylene liner exchange
Right knee debridement and irrigation down to bone
SURGEON: Gerry Rivera MD
ASSISTANTS: Prince Castillo PA-C who assisted with patient and limb positioning and retraction
ANESTHESIA: General
COMPLICATIONS: None.
ESTIMATED BLOOD LOSS: 50mL
DRAINS: None
SPECIMEN: Cultures x5
TOURNIQUET TIME: 61minutes
IMPLANTS:
Tr NexGen PS polyethylene articular surface, 12mm
Findings: Cloudy fluid in the knee, no purulence
INDICATIONS:
68M who presented to [facility] emergency department with 2 days of atraumatic right knee pain. No fevers or chills. He has history of right TKA many years ago at an outside hospital. His serum inflammatory markers were elevated. He
underwent aspiration and synovial fluid appeared concerning for PJI. We discussed treatment options. We discussed, given the acutity of his infection, the option of I&D and polyethyele liner exchange vs explantation. Shared decision was to proceed
with right TKA I&D and polyethylene liner exchange. We discussed there is risk that surgery may not completely eradicate the infection and that recurrent infection could occur. We reviewed the natural history of this problem, as well as the risks,
benefits, and alternatives of various treatment options. The patient understood the risks which included, but were not limited to, bleeding, infection, failure to relieve pain, more pain than preop, damage to blood vessels and nerves, need for
reoperation, mechanical failure of the implants, wound healing problems, stiffness, instability, blood clot, pulmonary embolism, myocardial infarction, pneumonia, arrhythmia, CVA, and . The patient accepted these risks and wished to proceed.
All questions were answered, and informed consent was obtained.
PROCEDURE IN DETAIL: The patient was identified in the preoperative holding area. The right knee was identified as the operative site. The patient was taken in the operating room and placed in a supine position on the operating table. General
anesthesia was performed. IV antibiotics were administered. Tranexamic acid were administered. All bony prominences were well padded. The right lower extremity was prepped and draped in the usual sterile fashion.
We performed a surgical time-out. The right knee was aspirated of 30mL of cloudy fluid. Methylene blue was injected. The leg was exsanguinated via gravity, and tourniquet was inflated to 250mmHg. The prior midline incision was excised along the
entire length. Full thickness flaps were raised under the prepatellar bursa. Arthrotomy was performed. No gracy purulence. 5 cultures were sent from throughout the knee. A thorough debridement and synovectomy of the entire joint was performed with
both electrocautery and a 10 blade scalpel down to bone. This was an excisional debridement down to bone. Care was taken and debriding the gutters not to destabilize the collateral ligaments. The polyethylene spacer was removed. It was inspected
and compared to trial liners to confirm the correct size. The posterior capsule was thoroughly debrided as well. The components were inspected and noted to be appropriately positioned and well fixed.
Once the knee was thoroughly debrided, the knee was thoroughly irrigated. The knee was irrigated sequentially with 3 L of sterile saline followed by a 3-minute soak of hydrogen peroxide 3% diluted 50-50 and sterile saline. The knee was irrigated
with another 3 L and then with nondiluted 10% Betadine. This was allowed to soak for 3 minutes as well. This was then irrigated with another 3 L of sterile saline. Meticulous hemostasis was achieved with electrocautery
Once the debridement and irrigation were complete and the knee appeared healthy, the entire surgical team donned new sterile gown and gloves. The dirty instruments were taken away and a fresh set of sterile unused instruments were brought to the
operative field. New operative drapes were placed about the surgical site after peeling back the old drapes and prepping the skin with chloroprep. These new drapes were clean and previously unused. The new polyethylene insert was opened and
inserted. It engaged with the locking mechanism. The arthrotomy was closed with 0 PDS in a running fashion. The skin was closed with 2-0 PDS in a running fashion. The skin was closed with 3-0 monocryl. Dermabond prineo dressing was applied followed
by silver mepalex.
Sponge and instrument count were correct at the end of the case. The patient awoke from anesthesia without complications.
Note, 22 modifier was added for BMI >45kg/m2 which added about 30 additional minutes for exposure, positioning, and implanting final implant.
Plan:
WBAT
Resume Eliquis
Pain control
PT/OT
Will follow cultures
Definitive abx selection and duration per ID team based on cultures. Will likely require 6 weeks IV abx and 3 months PO
Incisions to be checked in 2 weeks
Guerrero Rivera MD
[2024-01-14] MEDS: ROXICODONE 5 MG PO (19:46)
[2024-01-14] MEDS: DILAUDID 0.5 MG IV (19:58)
[2024-01-14] MEDS: GLUCOPHAGE PO (20:19)
--- NOTE | 2024-01-14 20:30 | PTCARENOTE ---
Received pt from PACU. Pt AAOx3. POX 89% on 3 LO2 NC upon arrival, oxygen increased to 6LO2 NC to obtain POX >92%. Lungs dec t/o. Pt with scratchy throat and frequent throat clearing, sipping on water without issues. Right knee post op dressing
intact, no drainage noted at this time. +1 edema, ice applied. Pt able to move to sit on side of bed to use urinal without difficulty. Pt reports pain 07/19, see MAR for pain medication administration. Daughter at bedside updated. IVF infusing via
left AC int. No issues to report at this time. Will continue to monitor.
[2024-01-14] MEDS: SENOKOT 17.2 MG PO (20:36)
[2024-01-14] MEDS: ROCEPHIN 2000 MG IV (20:36)
[2024-01-14] MEDS: COLACE 100 MG PO (20:36)
[2024-01-14] MEDS: STERILE WATER FOR INJECTION 20 ML IV (20:37)
[2024-01-14] MEDS: BACTROBAN 2% OINTMENT 1 APPLIC NASAL (20:37)
[2024-01-14] MEDS: NSS 1000 IV (20:45)
[2024-01-14] MEDS: SEROQUEL 200 MG PO (21:12)
[2024-01-14] MEDS: LANTUS 0.4 UNITS SC (21:12)
[2024-01-14 21:13] LABS: Glucose - Point of Care 216 mg/dl (70-99)
[2024-01-14] MEDS: CYMBALTA DELAYED RELEASE 60 MG PO (21:13)
[2024-01-14] MEDS: DITROPAN 5 MG PO (21:13)
[2024-01-15] VITALS (8 sets, daily range): BP systolic 119–170; BP diastolic 71–97; PULSE 70–79; O2SAT 92–93
[2024-01-15] MEDS: DILAUDID 1 MG IV ×3 (01:21→18:05)
--- NOTE | 2024-01-15 06:21 | PTCARENOTE ---
Pt awake intermittently t/o the night. PRN Pain medication administered as ordered. CPAP of 15 with 2LO2 while sleeping. Pt sitting on side of bed using urinal independently when needed. Right knee dressing remains C/D/I. IVF infusing as ordered.
Will continue to monitor.
--- NOTE | 2024-01-15 07:14 | W.PN.ORTHO ---
Today's Communication / Plan
-
68-year-old male postoperative day 1 for right knee periprosthetic joint infection debridement irrigation with polyethylene exchange with Dr. Rivera
-PT/OT/discharge planning. Weightbearing as tolerated and range of motion as tolerated to right lower extremity with assistive devices
-Resume Eliquis for DVT prophylaxis
-Pain control with current regimen
-Diet per primary
-No growth to date from intraoperative cultures, will continue to monitor
Orthopedic surgery continue to follow
Assessment
.
Distal Motor Intact: Yes
Dressing:
Clean, dry and intact.
Plan
.
Surgery / Date: 01/14/2024 right TKA I&D with poly exchange
Activity:
Out of bed.
PT/OT
Subjective
.
.:
Patient resting comfortably.
Vital Signs and Labs
.
Vital Signs and Labs:
Lab Results
01/14/24 04:25
01/14/24 04:25
Temp Pulse Resp BP Pulse Ox
98 F 81 22 139/94 94
01/15/24 02:55 01/15/24 02:55 01/15/24 02:55 01/15/24 02:55 01/15/24 02:55
Non-invasive Hgb result: 11.7
Physical Exam
-
Neurovascularly intact right lower extremity distally
[2024-01-15 07:41] LABS: Glucose - Point of Care 245 mg/dl (70-99)
[2024-01-15] MEDS: PROTONIX 40 MG PO ×2 (08:36→20:37)
[2024-01-15] MEDS: CYMBALTA DELAYED RELEASE 30 MG PO (08:36)
[2024-01-15] MEDS: NEURONTIN 300 MG PO ×2 (08:36→20:36)
[2024-01-15] MEDS: LIPITOR 40 MG PO (08:36)
[2024-01-15] MEDS: ELIQUIS 5 MG PO ×2 (08:37→20:36)
[2024-01-15] MEDS: COLACE 100 MG PO ×2 (08:37→20:35)
[2024-01-15] MEDS: GLUCOPHAGE 500 MG PO ×2 (08:37→17:58)
[2024-01-15] MEDS: VITAMIN B-12 1000 MCG PO (08:37)
[2024-01-15] MEDS: LANTUS 0.4 UNITS SC ×2 (08:37→20:38)
[2024-01-15] MEDS: VITAMIN D3 (cholecalciferol) 50 MCG PO (08:37)
[2024-01-15] MEDS: ASPIR LOW (ENTERIC COATED) 81 MG PO (08:37)
[2024-01-15] MEDS: SENOKOT 17.2 MG PO ×2 (08:37→20:37)
[2024-01-15] MEDS: NOVOLOG FLEXPEN 30 UNITS SC ×3 (08:38→18:02)
[2024-01-15] MEDS: BACTROBAN 2% OINTMENT 1 APPLIC NASAL ×2 (08:38→20:35)
[2024-01-15] MEDS: NOVOLOG FLEXPEN-LOW RESISTANCE 2 UNITS SC ×2 (08:42→12:36)
[2024-01-15] MEDS: CALAN EXTENDED RELEASE 240 MG PO (08:43)
[2024-01-15] MEDS: ROXICODONE 10 MG PO ×2 (08:46→14:36)
--- NOTE | 2024-01-15 10:29 | PHA.VAN.FU ---
Vancomycin Assessment / Plan
- Assessment
Renal Function: No New Labs Today
In the past 24 hrs, patient has been: Afebrile
Concomitant Antimicrobials: ceftriaxone
- Dosing Plan
Continue: restart 1750 mg q12h - pt was ordered this dose on the , DCD before give
New Regimen Predicts: AUC (544), Peak (33.7), Trough (14.1)
Dosing Comments: pt rec'd 2000 mg on 01/11; and 1500 mg on 01/12
would assume that pt has cleared all prior doses
- Monitoring Plan
No level(s) ordered at this time: consider levels when pt reaches steady state
- Follow Up
Pharmacy will continue to follow.
Vancomycin Follow UP
- -
Patient Age: 68
Patient Sex: Male
Vancomycin Day #: 3
Indication: Bone And Joint
Requesting Provider: Jace Alvarez
Pertinent Antimicrobial Allergies:
levofloxacin - Rash
Height / Weight:
Height 5 ft 11 in
Actual Weight 159.71 kg
Pertinent Past Medical History: BMI ~49, DM; prosthetic joint infection
- Vital Signs / Lab Results
Temp Pulse Resp BP Pulse Ox
98 F 83 18 162/86 93
01/15/24 02:55 01/15/24 08:43 01/15/24 08:00 01/15/24 08:43 01/15/24 08:00
Lab Results - Hematology
01/12/24 01/14/24
: 04:25
WBC 7.0 6.5
Lab Results - Chemistry
01/12/24 01/14/24
12:19 04:25
BUN 9 11
Creatinine 0.7 0.7
Estimated Creat Clear > 125 > 125
Albumin 4.0
Microbiology Results
01/12/24 13:26 Body Fluid Culture - Final
Joint Fluid Diptheroids
Gram Stain - Final
01/14/24 17:26 Gram Stain - Preliminary
Knee - Right
01/14/24 17:23 Gram Stain - Preliminary
Knee - Right
01/14/24 17:25 Gram Stain - Preliminary
Knee - Right
01/14/24 15:15 Gram Stain - Preliminary
Knee - Right
01/14/24 17:19 Gram Stain - Preliminary
Knee - Right
[2024-01-15] MEDS: VANCOCIN 535 MG IV ×2 (10:47→20:38)
--- NOTE | 2024-01-15 11:27 | W.PN.ID1 ---
Addendum entered and electronically signed by Marlys Davidson MD 01/15/24 15:22:
I saw and evaluated the patient. I reviewed the resident�s note and agree with findings and plan as documented in the resident�s note.
# Late right knee PJI
- Synovial fluid >30,000 wbc, 91%PMN, no crystals
Gram stain: no organism. Cx: Diphtheroid, isolated from enrichment broth only ?contaminant
- 01/15/24 s/p washout, exchange of polyethylene lining
- Awaiting OR cx's to finalize antibiotic choice.
- Continue empiric Vanco/ceftriaxone for now.
- Pt will need at least 6 weeks of IV abx followed by oral suppression (if option available)
- Anticipate earliest dc date Thursday 01/18. Need to set up home IV abx on Thursday. Insurance med pricing check and Home IV services are not open on s.
# DM uncontrolled.
- Recommend tight glucose control.
Original Note:
Date of Service
Date of Service: January 15, 2024
Today's Communication
.
Assessment / Plan
Assessment/plan
#Late Right prosthetic joint infection
s/p right knee periprosthetic joint infection debridement irrigation with polyethylene exchange 01/13
#History of right total knee arthroplasty performed 2015
-OR aerobic and anaerobic cultures obtained currently pending
-S/p joint aspiration fluid analysis which showed fluid WBC 90096, 91% PMN, no crystals seen.
-joint fluid Culture obtained on presentation with Diphtheroids. Possible skin contaminant
-Continue on IV ceftriaxone and vancomycin
-Follow wbc, temp.
-follow clinically.
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
Paroxysmal atrial fibrillation
Essential hypertension
T2DM
GERD
Hypercholesterolemia
Depression
ÓSCAR
Chief Complaint
-: Other (Right knee pain)
Subjective / Review of Systems
Review of Systems: No Fever and No Chills
Vital Signs / Physical Exam
Vital Signs
Vital Signs
Temp Pulse Resp BP Pulse Ox
98 F 83 18 162/86 93
01/15/24 02:55 01/15/24 08:43 01/15/24 08:00 01/15/24 08:43 01/15/24 08:00
Physical Exam
Constitutional: No Acute Distress
Cardiovascular: Regular Rate and S1/S2
Pulmonary: Clear
Gastrointestinal: Soft, Non Tender and Non Distended
Neurological: AO x 3
Objective Data
Lab Data
Lab Results
01/14/24 04:25
01/14/24 04:25
ESR 25 mm/hour (0-20) H 01/12/24 12:19
Estimated Creat Clear > 125 ml/min 01/14/24 04:25
Total Bilirubin 1.0 mg/dl (0.2-1.3) 01/12/24 12:19
AST 42 U/L (17-59) 01/12/24 12:19
ALT 34 U/L (0-50) 01/12/24 12:19
Alkaline Phosphatase 114 U/L (38-126) 01/12/24 12:19
C-Reactive Protein 46.30 mg/L (0.0-10.00) H 01/12/24 12:19
Most recent labs reviewed.
Micro Results:
01/12/24 13:26 Body Fluid Culture - Final
Joint Fluid Diptheroids
Gram Stain - Final
01/14/24 17:26 Tissue Culture - Pending
Knee - Right Gram Stain - Preliminary
01/14/24 17:23 Tissue Culture - Pending
Knee - Right Gram Stain - Preliminary
01/14/24 17:25 Tissue Culture - Pending
Knee - Right Gram Stain - Preliminary
01/14/24 15:15 Tissue Culture - Pending
Knee - Right Gram Stain - Preliminary
01/14/24 17:19 Tissue Culture - Pending
Knee - Right Gram Stain - Preliminary
01/14/24 18:32 Anaerobic Culture - Pending
Knee - Right
01/14/24 18:31 Anaerobic Culture - Pending
Knee - Right
01/14/24 18:30 Anaerobic Culture - Pending
Knee - Right
01/14/24 18:29 Anaerobic Culture - Pending
Knee - Right
01/14/24 18:28 Anaerobic Culture - Pending
Knee - Right
X-ray of the right knee 01/12/2024: Status post right knee replacement which appears in satisfactory position. No radiographic evidence for acute fracture or dislocation. Suggestion of a small to moderate suprapatellar joint effusion.
--- NOTE | 2024-01-15 12:15 | W.PN.HOSP.TC ---
Today's Communication/Plan
-
pending OR cultures
Assessment / Plan
Assessment / Plan
Assessment/plan
Septic arthritis right knee
-ESR 25, CRP 46.30, fluid WBC 11850
-Ortho consulted
-Knee x-ray with impression of Status post right knee replacement which appears in satisfactory position.No radiographic evidence for acute fracture or dislocation.Suggestion of a small to moderate suprapatellar joint effusion.
-Fluid culture sent from ER
-Dilaudid and oxy as needed for pain
-iv ceftriaxone and vanco
-ID consulted
01/12
Seen by orthopedic, plan for OR tomorrow
01/13
for OR today
Continue vancomycin
Eliquis/aspirin hold.
01/14
Status post single component revision right total knee replacement with polyethylene liner exchange, Right knee debridement and irrigation down to bone.
Continue antibiotic, pending OR cultures
Paroxysmal atrial fibrillation
Currently sinus rhythm
Continue Eliquis
Continue verapamil
Essential hypertension
-Continue verapamil
Type 2 diabetes with neuropathy
-Gabapentin continued
-NovoLog 30 with meals, Tresiba 40 units twice a day
-Continue metformin
01/13
Lantus was given 20 units last night and held today morning.
Resume tonight at 40 units twice daily
Resume Premeal insulin after OR
GERD
-Continue Protonix
Hypercholesterolemia
-Continue statin
Depression
-Continue duloxetine, Seroquel
Sleep apnea
-CPAP
CODE STATUS: Full code
DVT prophylaxis: Eliquis.
Diet: Diabetic
I spent 65 minutes giving direct care to the patient including chart review, talking to consultants, talking to treatment team, family communication.
Anticipated Discharge: > 48 hours
Subjective/Interval History
-
Date of Service: January 15, 2024
Patient seen and examined at bedside, denies any chest pain or shortness of breath, no abdominal pain, no nausea, no vomiting, no diarrhea or constipation.
Status post single component revision right total knee replacement with polyethylene liner exchange, Right knee debridement and irrigation down to bone.
Objective Data
-
Vital Signs:
Vital Signs
Temp Pulse Resp BP Pulse Ox
98 F 83 18 162/86 93
01/15/24 02:55 01/15/24 08:43 01/15/24 08:00 01/15/24 08:43 01/15/24 08:00
I&O
01/14/24 01/15/24 01/16/24
06:59 06:59 06:59
Intake Total 2195 / 2195 1090 / 1090 535 / 535
Output Total 2049 / 2049 1900 / 1900 480 / 480
Balance 145 / 145 -810 / -810 55 / 55
Physical Exam
-
General: Well Developed, Well Nourished, No Apparent Distress and Comfortable
HEENT: Normocephalic, Atraumatic, Moist Mucous Membranes, No Ptosis, PERRLA and Nose Appears Normal
Respiratory: Clear to Auscultation and Non Labored Respirations
Cardiac: Regular Rhythm and S1/S2
Breast: Deferred by me
GI: Soft, Nontender, Nondistended and Normal Bowel Sounds
Genito-urinary: No Costovertebral Tender
Musculoskeletal: No Clubbing, No Cyanosis, No Edema and Other (Right knee dressing)
Skin: Warm
Neuro: Awake, Alert, Oriented, AO x 3 and No Motor Deficits
Psych: Calm
[2024-01-15 12:34] LABS: Glucose - Point of Care 232 mg/dl (70-99)
--- NOTE | 2024-01-15 12:53 | CM ---
Chart reviewed and met with pt
POD #1 - revision right total knee replacement with polyethylene liner exchange, Right knee debridement and irrigation down to bone
Remains on antibiotics
Cultures pending - ID following - may require Home infusion for IV antibiotics
PT/OT evals pending
CM will follow for discharge needs
Plan - follow for home infusion needs. PT/OT recs pending
[2024-01-15 17:34] LABS: Glucose - Point of Care 128 mg/dl (70-99)
[2024-01-15] MEDS: NOVOLOG FLEXPEN-LOW RESISTANCE SC (18:02)
[2024-01-15] MEDS: ROCEPHIN 2000 MG IV (20:37)
[2024-01-15] MEDS: STERILE WATER FOR INJECTION 20 ML IV (20:37)
[2024-01-15 21:28] LABS: Glucose - Point of Care 109 mg/dl (70-99)
[2024-01-15] MEDS: SEROQUEL 200 MG PO (22:38)
[2024-01-15] MEDS: DITROPAN 5 MG PO (22:38)
[2024-01-15] MEDS: CYMBALTA DELAYED RELEASE 60 MG PO (22:38)
[2024-01-16] MEDS: VANCOCIN 535 MG IV ×2 (05:58→18:09)
[2024-01-16 07:20] VITALS: BP 165/98
[2024-01-16 07:48] LABS: Glucose - Point of Care 117 mg/dl (70-99)
--- NOTE | 2024-01-16 08:37 | W.PN.ORTHO ---
Today's Communication / Plan
-
POD#2 right knee periprosthetic joint infection debridement irrigation with polyethylene exchange with Dr. Rivera
--Weight bearing as tolerated to right leg. Ambulate with walker
--PT/OT
--Eliquis has been resumed
--Continue with pain management as needed
--Intraop cultures with no growth to date. Continue to follow
--Appreciate ID recommendations. Currently vancomycin and ceftriaxone
--Will continue to follow
Assessment
.
Distal Motor Intact: Yes
Dressing:
Clean, dry and intact.
Plan
.
Surgery / Date: 01/14/2024 right TKA I&D with poly exchange
DVT Prophylaxis: Other (Eliquis)
Activity:
Out of bed.
PT/OT
Subjective
.
.:
Patient resting comfortably in bed
Vital Signs and Labs
.
Vital Signs and Labs:
Lab Results
01/14/24 04:25
01/14/24 04:25
Temp Pulse Resp BP Pulse Ox
98.0 F 72 18 165/98 95
01/16/24 07:20 01/16/24 07:20 01/16/24 07:20 01/16/24 07:20 01/16/24 07:20
Non-invasive Hgb result: 11.7
Physical Exam
-
Directed exam of right knee reveals surgical dressing in place. clean, dry, and intact. mild expected edema. mild general tenderness to palpation. calf soft and nontender. NVI distally
[2024-01-16] MEDS: NOVOLOG FLEXPEN-LOW RESISTANCE SC ×3 (08:45→18:06)
[2024-01-16] MEDS: DILAUDID 1 MG IV (09:16)
[2024-01-16] MEDS: NOVOLOG FLEXPEN 30 UNITS SC ×3 (09:18→18:07)
[2024-01-16] MEDS: LANTUS 0.4 UNITS SC ×2 (09:19→20:56)
[2024-01-16] MEDS: COLACE 100 MG PO ×2 (09:20→20:57)
[2024-01-16] MEDS: LIPITOR 40 MG PO (09:20)
[2024-01-16] MEDS: VITAMIN D3 (cholecalciferol) 50 MCG PO (09:20)
[2024-01-16] MEDS: GLUCOPHAGE 500 MG PO ×2 (09:21→18:07)
[2024-01-16] MEDS: CALAN EXTENDED RELEASE 240 MG PO (09:21)
[2024-01-16] MEDS: ELIQUIS 5 MG PO ×2 (09:22→20:56)
[2024-01-16] MEDS: ASPIR LOW (ENTERIC COATED) 81 MG PO (09:22)
[2024-01-16] MEDS: PROTONIX 40 MG PO ×2 (09:22→20:57)
[2024-01-16] MEDS: SENOKOT 17.2 MG PO ×2 (09:22→20:57)
[2024-01-16] MEDS: VITAMIN B-12 1000 MCG PO (09:22)
[2024-01-16] MEDS: NEURONTIN 300 MG PO ×2 (09:23→20:57)
[2024-01-16] MEDS: CYMBALTA DELAYED RELEASE 30 MG PO (09:23)
--- NOTE | 2024-01-16 10:06 | PHA.VAN.FU ---
Vancomycin Assessment / Plan
- Assessment
Renal Function: No New Labs Today
In the past 24 hrs, patient has been: Afebrile
Concomitant Antimicrobials: Ceftriaxone
- Dosing Plan
Continue: Vanc 1750mg IV q12H
- Monitoring Plan
Peak Level: 01/15 at 2130
Trough Level: 01/16 at 0530
- Follow Up
Pharmacy will continue to follow.
Vancomycin Follow UP
- -
Patient Age: 68
Patient Sex: Male
Vancomycin Day #: 4
Indication: Bone And Joint
Requesting Provider: Jace Alvarez
Pertinent Antimicrobial Allergies:
levofloxacin - Rash
Height / Weight:
Height 5 ft 11 in
Actual Weight 159.71 kg
Pertinent Past Medical History: BMI ~49, DM; prosthetic joint infection
- Vital Signs / Lab Results
Temp Pulse Resp BP Pulse Ox
98.0 F 72 18 165/98 95
01/16/24 07:20 01/16/24 07:20 01/16/24 07:20 01/16/24 09:21 01/16/24 07:20
Lab Results - Hematology
01/14/24
04:25
WBC 6.5
Lab Results - Chemistry
01/14/24
04:25
BUN 11
Creatinine 0.7
Estimated Creat Clear > 125
Microbiology Results
01/14/24 18:32 Anaerobic Culture - Preliminary
Knee - Right Culture pending. Anaerobic cultures are examined after 3
days incubation. Additional information to follow.
01/14/24 17:26 Tissue Culture - Preliminary
Knee - Right No Growth After 18-24 Hours
Gram Stain - Preliminary
01/14/24 15:15 Tissue Culture - Preliminary
Knee - Right No Growth After 18-24 Hours
Gram Stain - Preliminary
01/14/24 17:19 Tissue Culture - Preliminary
Knee - Right No Growth After 18-24 Hours
Gram Stain - Preliminary
01/14/24 17:23 Tissue Culture - Preliminary
Knee - Right No Growth After 18-24 Hours
Gram Stain - Preliminary
01/14/24 17:25 Tissue Culture - Preliminary
Knee - Right No Growth After 18-24 Hours
Gram Stain - Preliminary
01/14/24 18:31 Anaerobic Culture - Preliminary
Knee - Right Culture pending. Anaerobic cultures are examined after 3
days incubation. Additional information to follow.
01/14/24 18:30 Anaerobic Culture - Preliminary
Knee - Right Culture pending. Anaerobic cultures are examined after 3
days incubation. Additional information to follow.
01/14/24 18:29 Anaerobic Culture - Preliminary
Knee - Right Culture pending. Anaerobic cultures are examined after 3
days incubation. Additional information to follow.
01/14/24 18:28 Anaerobic Culture - Preliminary
Knee - Right Culture pending. Anaerobic cultures are examined after 3
days incubation. Additional information to follow.
01/12/24 13:26 Body Fluid Culture - Final
Joint Fluid Diptheroids
Gram Stain - Final
--- NOTE | 2024-01-16 10:51 | W.PN.ID1 ---
Date of Service
Date of Service: January 16, 2024
Today's Communication
Continue antibiotics.
Assessment / Plan
Assessment/plan
# Late Right prosthetic joint infection
s/p right knee periprosthetic joint infection debridement irrigation with polyethylene exchange 01/13
# History of right total knee arthroplasty performed 2015
-OR aerobic and anaerobic cultures obtained currently pending.
- Aerobic cultures no growth at 48 hours. Anaerobic cultures remain pending.
-S/p joint aspiration fluid analysis which showed fluid WBC 92243, 91% PMN, no crystals seen.
-joint fluid Culture obtained on presentation with Diphtheroids. Possible skin contaminant
-Continue on IV ceftriaxone and vancomycin
-Follow wbc, temp.
-follow clinically.
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
Paroxysmal atrial fibrillation
Essential hypertension
T2DM
GERD
Hypercholesterolemia
Depression
ÓSCAR
Chief Complaint
-: Other (Right knee pain)
Subjective / Review of Systems
Review of Systems: No Fever and No Chills
Vital Signs / Physical Exam
Vital Signs
Vital Signs
Temp Pulse Resp BP Pulse Ox
98.0 F 72 18 165/98 95
01/16/24 07:20 01/16/24 07:20 01/16/24 07:20 01/16/24 09:21 01/16/24 07:20
Physical Exam
Constitutional: No Acute Distress
Eyes: Sclera Anicteric
Cardiovascular: Regular Rate and S1/S2
Pulmonary: Clear
Gastrointestinal: Soft, Non Tender and Non Distended
Musculoskeletal: Other (Right knee with dressing in place. )
Neurological: AO x 3
Objective Data
Lab Data
Lab Results
01/14/24 04:25
01/14/24 04:25
ESR 25 mm/hour (0-20) H 01/12/24 12:19
Estimated Creat Clear > 125 ml/min 01/14/24 04:25
Total Bilirubin 1.0 mg/dl (0.2-1.3) 01/12/24 12:19
AST 42 U/L (17-59) 01/12/24 12:19
ALT 34 U/L (0-50) 01/12/24 12:19
Alkaline Phosphatase 114 U/L (38-126) 01/12/24 12:19
C-Reactive Protein 46.30 mg/L (0.0-10.00) H 01/12/24 12:19
Most recent labs reviewed.
Micro Results:
01/14/24 15:15 Tissue Culture - Preliminary
Knee - Right No Growth After 48 Hours
Gram Stain - Preliminary
01/14/24 18:28 Anaerobic Culture - Preliminary
Knee - Right Culture pending. Anaerobic cultures are examined after 3
days incubation. Additional information to follow.
01/14/24 18:29 Anaerobic Culture - Preliminary
Knee - Right Culture pending. Anaerobic cultures are examined after 3
days incubation. Additional information to follow.
01/14/24 17:19 Tissue Culture - Preliminary
Knee - Right No Growth After 48 Hours
Gram Stain - Preliminary
01/14/24 18:30 Anaerobic Culture - Preliminary
Knee - Right Culture pending. Anaerobic cultures are examined after 3
days incubation. Additional information to follow.
01/14/24 17:23 Tissue Culture - Preliminary
Knee - Right No Growth After 48 Hours
Gram Stain - Preliminary
01/14/24 18:31 Anaerobic Culture - Preliminary
Knee - Right Culture pending. Anaerobic cultures are examined after 3
days incubation. Additional information to follow.
01/14/24 17:25 Tissue Culture - Preliminary
Knee - Right No Growth After 48 Hours
Gram Stain - Preliminary
01/14/24 17:26 Tissue Culture - Preliminary
Knee - Right No Growth After 48 Hours
Gram Stain - Preliminary
01/14/24 18:32 Anaerobic Culture - Preliminary
Knee - Right Culture pending. Anaerobic cultures are examined after 3
days incubation. Additional information to follow.
01/12/24 13:26 Body Fluid Culture - Final
Joint Fluid Diptheroids
Gram Stain - Final
X-ray of the right knee 01/12/2024: Status post right knee replacement which appears in satisfactory position. No radiographic evidence for acute fracture or dislocation. Suggestion of a small to moderate suprapatellar joint effusion.
--- NOTE | 2024-01-16 11:34 | W.PN.HOSP.TC ---
Today's Communication/Plan
-
IV abx per ID
Monitor POC
adjusted pain
OOB/PT
ice pack
Assessment / Plan
Assessment / Plan
Assessment/plan
Right prosthetic joint infection
History of right total knee arthroplasty in 2016
-ESR 25, CRP 46.30, fluid WBC 99048
-Ortho consulted
-Knee x-ray with impression of Status post right knee replacement which appears in satisfactory position.No radiographic evidence for acute fracture or dislocation.Suggestion of a small to moderate suprapatellar joint effusion.
-Fluid culture sent from ER
-Dilaudid and oxy as needed for pain
-iv ceftriaxone and vanco
-Status post single component revision right total knee replacement with polyethylene liner exchange, Right knee debridement and irrigation down to bone.
-Continue antibiotic, pending OR cultures
-ID and ortho following
Paroxysmal atrial fibrillation
Currently sinus rhythm
Continue Eliquis
Continue verapamil
Essential hypertension
-Continue verapamil
Type 2 diabetes with neuropathy
-Gabapentin continued
-NovoLog 30 with meals, lantus 40 BID
-Continue metformin
-POC 117 am
GERD
-Continue Protonix
Hypercholesterolemia
-Continue statin
Depression
-Continue duloxetine, Seroquel
Sleep apnea
-CPAP
CODE STATUS: Full code
DVT prophylaxis: Eliquis.
Diet: Diabetic
Anticipated Discharge: > 48 hours
Subjective/Interval History
-
Date of Service: January 16, 2024
states of severe R knee pain
states pain meds not much helping
Objective Data
-
Vital Signs:
Vital Signs
Temp Pulse Resp BP Pulse Ox
98.0 F 72 18 165/98 95
01/16/24 07:20 01/16/24 07:20 01/16/24 07:20 01/16/24 09:21 01/16/24 07:20
I&O
01/15/24 01/16/24 01/17/24
06:59 06:59 06:59
Intake Total 1090 / 1090 1615 / 1615
Output Total 1900 / 1900 1280 / 1280
Balance -810 / -810 335 / 335
Physical Exam
-
General: Well Developed, Well Nourished, No Apparent Distress, Comfortable and Morbidly Obese
HEENT: Normocephalic, Atraumatic, Moist Mucous Membranes, No Ptosis, Nose Appears Normal and Ears Appear Normal
Respiratory: Clear to Auscultation and Non Labored Respirations
Cardiac: Regular Rhythm and S1/S2
Breast: Deferred by me
GI: Soft, Nontender, Nondistended and Normal Bowel Sounds
Genito-urinary: No Costovertebral Tender
Musculoskeletal: No Clubbing, No Cyanosis and Other (Right knee dressing/severe swelling/ice pack on-noted )
Skin: Warm
Neuro: Awake, Alert, Oriented, AO x 3 and No Motor Deficits
Psych: Calm
Data Reviewed
-
Total Time Spent with Patient (in minutes): 55
[2024-01-16 11:53] LABS: Glucose - Point of Care 126 mg/dl (70-99)
[2024-01-16 12:35] LABS: Glucose - Point of Care 101 mg/dl (70-99)
[2024-01-16] MEDS: ROXICODONE 10 MG PO ×2 (13:47→20:58)
[2024-01-16 14:44] VITALS: BP 151/68
[2024-01-16 16:37] LABS: Glucose - Point of Care 107 mg/dl (70-99)
[2024-01-16] MEDS: DILAUDID 1.25 MG IV (17:25)
[2024-01-16] MEDS: STERILE WATER FOR INJECTION 20 ML IV (20:57)
[2024-01-16] MEDS: ROCEPHIN 2000 MG IV (20:57)
[2024-01-16] MEDS: MIRALAX 17 GRAMS PO (20:58)
[2024-01-16] MEDS: DITROPAN 5 MG PO (21:00)
[2024-01-16] MEDS: CYMBALTA DELAYED RELEASE 60 MG PO (21:00)
[2024-01-16] MEDS: SEROQUEL 200 MG PO (21:00)
[2024-01-16 21:07] LABS: Glucose - Point of Care 105 mg/dl (70-99)
[2024-01-16 21:34] VITALS: PULSE 58
[2024-01-16 23:27] VITALS: BP 168/81
[2024-01-17 00:19] LABS: Vancomycin Peak 15.4 ug/ml (18-26)
[2024-01-17] MEDS: VANCOCIN 535 MG IV (06:06)
[2024-01-17 06:19] LABS: Blood Urea Nitrogen 12 mg/dl (9-20); Calcium 8.5 mg/dl (8.4-10.2); Carbon Dioxide 25 mmol/L (22-30); Chloride 99 mmol/L (98-107); Estimated Creatinine Clearance > 125 ml/min; Glucose 126 mg/dl (70-99); Potassium 3.9 mmol/L (3.5-5.1); Sodium 135 mmol/L (135-145); eGFR > 60.00
[2024-01-17 06:25] LABS: Vancomycin Trough 10.2 ug/ml (5-20)
[2024-01-17 06:43] LABS: % Eosinophils 2.2 % (0-6); % Immature Granulocytes 0.5 % (0-0.5); % Lymphocytes 13.9 % (20.5-51.1); % Monocytes 10.1 % (1.7-9.3); % Neutrophils 72.3 % (42.2-75.2); Absolute Basophils 0.1 10^3/uL (0-0.2); Absolute Eosinophils 0.1 10^3/uL (0-0.7); Absolute Lymphocytes 0.8 10^3/uL (1.2-3.4); Absolute Monocytes 0.6 10^3/uL (0.1-0.6); Absolute Neutrophils 4.4 10^3/uL (1.4-6.5); Hematocrit 33.8 % (39.0-52.0); Hemoglobin 10.6 g/dL (13.0-18.0); Mean Corp Hgb Conc. 31.4 g/dL (33.0-37.0); Mean Corpuscular Hgb 26.4 pg (27.0-31.0); Mean Corpuscular Volume 84.3 fL (80.0-94.0); Mean Platelet Volume 10.7 fL (7.4-10.4); Nucleated Red Blood Cells % 0 % (-); Platelet Count 222 10^3/uL (130-400); Red Blood Cell Count 4.01 10^6/uL (4.70-6.10); Red Cell Dist. Width 15.9 % (11.5-14.5)
[2024-01-17 07:35] VITALS: BP 122/66
[2024-01-17 07:54] LABS: Glucose - Point of Care 111 mg/dl (70-99)
[2024-01-17] MEDS: LANTUS 0.4 UNITS SC ×2 (09:36→21:27)
[2024-01-17] MEDS: NOVOLOG FLEXPEN 30 UNITS SC ×3 (09:36→18:29)
[2024-01-17] MEDS: NOVOLOG FLEXPEN-LOW RESISTANCE SC ×3 (09:37→18:30)
[2024-01-17] MEDS: ASPIR LOW (ENTERIC COATED) 81 MG PO (09:38)
[2024-01-17] MEDS: CALAN EXTENDED RELEASE 240 MG PO (09:38)
[2024-01-17] MEDS: NEURONTIN 300 MG PO ×2 (09:38→20:05)
[2024-01-17] MEDS: ROXICODONE 10 MG PO ×2 (09:39→17:19)
[2024-01-17] MEDS: PROTONIX 40 MG PO ×2 (09:39→20:05)
[2024-01-17] MEDS: COLACE 100 MG PO ×2 (09:39→20:04)
[2024-01-17] MEDS: ELIQUIS 5 MG PO ×2 (09:40→20:05)
[2024-01-17] MEDS: SENOKOT 17.2 MG PO ×2 (09:40→20:05)
[2024-01-17] MEDS: GLUCOPHAGE 500 MG PO ×2 (09:40→17:19)
[2024-01-17] MEDS: CYMBALTA DELAYED RELEASE 30 MG PO (09:41)
[2024-01-17] MEDS: VITAMIN B-12 1000 MCG PO (09:41)
[2024-01-17] MEDS: VITAMIN D3 (cholecalciferol) 50 MCG PO (09:41)
[2024-01-17] MEDS: LIPITOR 40 MG PO (09:41)
--- NOTE | 2024-01-17 09:47 | PHA.VAN.FU ---
Vancomycin Assessment / Plan
- Assessment
Renal Function: Stable
WBC's are: Stable
In the past 24 hrs, patient has been: Afebrile
Concomitant Antimicrobials: Ceftriaxone
- Assessment - Therapeutic Drug Monitoring
Extrapolated Cmax (mcg/mL): 19.5
Peak level was drawn: More than 3 hours after previous dose
Extrapolated Cmin (mcg/mL): 9.9
Trough Drawn: Appropriately
Calculated AUC (mcg*h/mL): 342
Calculated ke: 0.0683
Calculated half life (H): 10.1
Calculated Vd (L): 149.71
Calculated Vanc CL (ml/min): 10.22
- Dosing Plan
Adjust Regimen to: Vanc 2000mg IV q12H
New Regimen Predicts: AUC (418), Peak (23.9), Trough (12.1)
- Monitoring Plan
No level(s) ordered at this time: Consider levels after 01/17 1800 dose.
- Follow Up
Pharmacy will continue to follow.
Vancomycin Follow UP
- -
Patient Age: 68
Patient Sex: Male
Vancomycin Day #: 5
Indication: Bone And Joint
Requesting Provider: Jace Alvarez
Pertinent Antimicrobial Allergies:
levofloxacin - Rash
Height / Weight:
Height 5 ft 11 in
Actual Weight 159.71 kg
Pertinent Past Medical History: BMI ~49, DM; prosthetic joint infection
- Vital Signs / Lab Results
Temp Pulse Resp BP Pulse Ox
97.9 F 73 16 122/66 94
01/17/24 07:35 01/17/24 07:35 01/17/24 07:35 01/17/24 09:38 01/17/24 07:35
Lab Results - Hematology
01/17/24
05:40
WBC 6.0
Lab Results - Chemistry
01/17/24
05:40
BUN 12
Creatinine 0.7
Estimated Creat Clear > 125
Microbiology Results
01/14/24 15:15 Tissue Culture - Preliminary
Knee - Right No Growth After 48 Hours
Gram Stain - Preliminary
01/14/24 18:28 Anaerobic Culture - Preliminary
Knee - Right Culture pending. Anaerobic cultures are examined after 3
days incubation. Additional information to follow.
01/14/24 18:29 Anaerobic Culture - Preliminary
Knee - Right Culture pending. Anaerobic cultures are examined after 3
days incubation. Additional information to follow.
01/14/24 17:19 Tissue Culture - Preliminary
Knee - Right No Growth After 48 Hours
Gram Stain - Preliminary
01/14/24 18:30 Anaerobic Culture - Preliminary
Knee - Right Culture pending. Anaerobic cultures are examined after 3
days incubation. Additional information to follow.
01/14/24 17:23 Tissue Culture - Preliminary
Knee - Right No Growth After 48 Hours
Gram Stain - Preliminary
01/14/24 18:31 Anaerobic Culture - Preliminary
Knee - Right Culture pending. Anaerobic cultures are examined after 3
days incubation. Additional information to follow.
01/14/24 17:25 Tissue Culture - Preliminary
Knee - Right No Growth After 48 Hours
Gram Stain - Preliminary
01/14/24 17:26 Tissue Culture - Preliminary
Knee - Right No Growth After 48 Hours
Gram Stain - Preliminary
01/14/24 18:32 Anaerobic Culture - Preliminary
Knee - Right Culture pending. Anaerobic cultures are examined after 3
days incubation. Additional information to follow.
01/12/24 13:26 Body Fluid Culture - Final
Joint Fluid Diptheroids
Gram Stain - Final
Therapeutic Drug Monitoring
Vancomycin Peak 15.4 ug/ml (18-26) L 01/16/24 23:38
Vancomycin Trough 10.2 ug/ml (5-20) 01/17/24 05:40
--- NOTE | 2024-01-17 11:41 | W.PN.ID1 ---
Date of Service
Date of Service: January 17, 2024
Today's Communication
Continue antibiotics.
Assessment / Plan
Assessment/plan
# Late Right prosthetic joint infection
s/p right knee periprosthetic joint infection debridement irrigation with polyethylene exchange 01/13
# History of right total knee arthroplasty performed 2015
-OR aerobic and anaerobic cultures obtained currently pending.
- Aerobic cultures no growth at 48 hours. Anaerobic cultures remain pending.
-S/p joint aspiration fluid analysis which showed fluid WBC 51567, 91% PMN, no crystals seen.
-joint fluid Culture obtained on presentation with Diphtheroids. Possible skin contaminant
-Continue on IV ceftriaxone and vancomycin
-Follow wbc, temp.
-follow clinically.
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
Paroxysmal atrial fibrillation
Essential hypertension
T2DM
GERD
Hypercholesterolemia
Depression
ÓSCAR
Chief Complaint
-: Other (Right knee pain)
Subjective / Review of Systems
Review of Systems: No Fever and No Chills
Vital Signs / Physical Exam
Vital Signs
Vital Signs
Temp Pulse Resp BP Pulse Ox
97.9 F 73 16 122/66 94
01/17/24 07:35 01/17/24 07:35 01/17/24 07:35 01/17/24 09:38 01/17/24 07:35
Physical Exam
Constitutional: No Acute Distress and Obese
Eyes: Sclera Anicteric
Pulmonary: Clear and Non Labored
Gastrointestinal: Soft, Non Tender and Non Distended
Musculoskeletal: Other (Right knee with dressing in place. )
Neurological: AO x 3
Objective Data
Lab Data
Lab Results
01/17/24 05:40
01/17/24 05:40
ESR 25 mm/hour (0-20) H 01/12/24 12:19
Estimated Creat Clear > 125 ml/min 01/17/24 05:40
Total Bilirubin 1.0 mg/dl (0.2-1.3) 01/12/24 12:19
AST 42 U/L (17-59) 01/12/24 12:19
ALT 34 U/L (0-50) 01/12/24 12:19
Alkaline Phosphatase 114 U/L (38-126) 01/12/24 12:19
C-Reactive Protein 46.30 mg/L (0.0-10.00) H 01/12/24 12:19
Most recent labs reviewed.
Micro Results:
01/14/24 17:26 Tissue Culture - Preliminary
Knee - Right No Growth After 72 Hours
Gram Stain - Preliminary
01/14/24 18:32 Anaerobic Culture - Preliminary
Knee - Right Culture pending. Anaerobic cultures are examined after 3
days incubation. Additional information to follow.
01/14/24 17:25 Tissue Culture - Preliminary
Knee - Right No Growth After 72 Hours
Gram Stain - Preliminary
01/14/24 18:31 Anaerobic Culture - Preliminary
Knee - Right Culture pending. Anaerobic cultures are examined after 3
days incubation. Additional information to follow.
01/14/24 17:23 Tissue Culture - Preliminary
Knee - Right No Growth After 72 Hours
Gram Stain - Preliminary
01/14/24 18:30 Anaerobic Culture - Preliminary
Knee - Right Culture pending. Anaerobic cultures are examined after 3
days incubation. Additional information to follow.
01/14/24 17:19 Tissue Culture - Preliminary
Knee - Right No Growth After 72 Hours
Gram Stain - Preliminary
01/14/24 18:29 Anaerobic Culture - Preliminary
Knee - Right Culture pending. Anaerobic cultures are examined after 3
days incubation. Additional information to follow.
01/14/24 18:28 Anaerobic Culture - Preliminary
Knee - Right Culture pending. Anaerobic cultures are examined after 3
days incubation. Additional information to follow.
01/14/24 15:15 Tissue Culture - Preliminary
Knee - Right No Growth After 72 Hours
Gram Stain - Preliminary
01/12/24 13:26 Body Fluid Culture - Final
Joint Fluid Diptheroids
Gram Stain - Final
X-ray of the right knee 01/12/2024: Status post right knee replacement which appears in satisfactory position. No radiographic evidence for acute fracture or dislocation. Suggestion of a small to moderate suprapatellar joint effusion.
[2024-01-17 11:53] LABS: Glucose - Point of Care 146 mg/dl (70-99)
--- NOTE | 2024-01-17 12:53 | W.PN.HOSP.TC ---
Today's Communication/Plan
-
Continue with broad-spectrum antibiotic vancomycin and ceftriaxone
Start aggressive bowel regimen
Continue with strict glycemic control
Out of bed and PT
Assessment / Plan
Assessment / Plan
Assessment/plan
Right prosthetic joint infection
History of right total knee arthroplasty in 2016
-ESR 25, CRP 46.30, fluid WBC 34024
-Ortho consulted
-Knee x-ray with impression of Status post right knee replacement which appears in satisfactory position.No radiographic evidence for acute fracture or dislocation.Suggestion of a small to moderate suprapatellar joint effusion.
-Fluid culture sent from ER
-Dilaudid and oxy as needed for pain
-iv ceftriaxone and vanco
-Status post single component revision right total knee replacement with polyethylene liner exchange, Right knee debridement and irrigation down to bone.
-Continue antibiotic, pending OR cultures
-ID and ortho following
Paroxysmal atrial fibrillation
Currently sinus rhythm
Continue Eliquis
Continue verapamil
Essential hypertension
-Continue verapamil. Controlled 122/66
Type 2 diabetes with neuropathy
-Gabapentin continued
-NovoLog 30 with meals, lantus 40 BID
-Continue metformin
-POC 111 am
GERD
-Continue Protonix
Hypercholesterolemia
-Continue statin
Depression
-Continue duloxetine, Seroquel
Sleep apnea
-CPAP
Constipation
-bowel regimen
CODE STATUS: Full code
DVT prophylaxis: Eliquis.
Diet: Diabetic
Anticipated Discharge: > 48 hours
Subjective/Interval History
-
Date of Service: January 17, 2024
tolerating diet
states of R knee pain
ice pack continues
states of no bm x 5 days. passing flatulence. no nausea or vomiting
Objective Data
-
Labs:
Laboratory Results
01/17/24
05:40
WBC 6.0
Hgb 10.6 L
Hct 33.8 L
Plt Count 222 D
Sodium 135
Potassium 3.9
Chloride 99
Carbon Dioxide 25
BUN 12
Creatinine 0.7
Glucose 126 H
Calcium 8.5
Vital Signs:
Vital Signs
Temp Pulse Resp BP Pulse Ox
97.9 F 73 16 122/66 94
01/17/24 07:35 01/17/24 07:35 01/17/24 07:35 01/17/24 09:38 01/17/24 07:35
I&O
01/16/24 01/17/24 01/18/24
06:59 06:59 06:59
Intake Total 1615 / 1615 1975 / 1975 960 / 960
Output Total 1280 / 1280 1205 / 1205 725 / 725
Balance 335 / 335 770 / 770 235 / 235
Physical Exam
-
General: Well Developed, Well Nourished, No Apparent Distress, Comfortable and Morbidly Obese
HEENT: Normocephalic, Atraumatic, Moist Mucous Membranes, No Ptosis, Nose Appears Normal and Ears Appear Normal
Respiratory: Clear to Auscultation and Non Labored Respirations
Cardiac: Regular Rhythm and S1/S2
Breast: Deferred by me
GI: Soft, Nontender, Nondistended and Normal Bowel Sounds
Genito-urinary: No Costovertebral Tender
Musculoskeletal: No Clubbing, No Cyanosis and Other (Right knee dressing/severe swelling/ice pack on-noted )
Skin: Warm
Neuro: Awake, Alert, Oriented, AO x 3 and No Motor Deficits
Psych: Calm
Data Reviewed
-
Total Time Spent with Patient (in minutes): 55
--- NOTE | 2024-01-17 13:35 | W.PN.ORTHO ---
Today's Communication / Plan
-
POD#3 right knee periprosthetic joint infection debridement irrigation with polyethylene exchange with Dr. Rivera
--Weight bearing as tolerated to right leg. Ambulate with walker
--PT/OT
--Eliquis has been resumed
--Continue with pain management as needed
--Intraop cultures with no growth at 72 hours. Continue to follow
--Appreciate ID recommendations. Currently on vancomycin and ceftriaxone
--Will continue to follow
Assessment
.
Distal Motor Intact: Yes
Dressing:
Clean, dry and intact.
Plan
.
Surgery / Date: 01/14/2024 right TKA I&D with poly exchange
DVT Prophylaxis: Other (Eliquis)
Activity:
Out of bed.
PT/OT
Subjective
.
.:
Patient resting comfortably.
Vital Signs and Labs
.
Vital Signs and Labs:
Lab Results
01/17/24 05:40
01/17/24 05:40
Temp Pulse Resp BP Pulse Ox
97.9 F 73 16 122/66 94
01/17/24 07:35 01/17/24 07:35 01/17/24 07:35 01/17/24 09:38 01/17/24 07:35
Non-invasive Hgb result: 11.7
Physical Exam
-
Directed exam of right knee reveals surgical dressing in place. clean, dry, and intact. mild expected edema. mild general tenderness to palpation. calf soft and nontender. NVI distally
[2024-01-17] MEDS: DILAUDID 1.25 MG IV ×2 (13:41→21:13)
[2024-01-17] MEDS: DULCOLAX 10 MG PO (13:49)
[2024-01-17] MEDS: MILK OF MAGNESIA 30 ML PO (13:50)
[2024-01-17 15:50] VITALS: BP 143/78
[2024-01-17 17:28] LABS: Glucose - Point of Care 95 mg/dl (70-99)
[2024-01-17] MEDS: VANCOCIN 540 MG IV (18:40)
[2024-01-17] MEDS: CYMBALTA DELAYED RELEASE 60 MG PO (21:28)
[2024-01-17] MEDS: ROCEPHIN 2000 MG IV (21:28)
[2024-01-17] MEDS: SEROQUEL 200 MG PO (21:28)
[2024-01-17] MEDS: DITROPAN 5 MG PO (21:28)
[2024-01-17] MEDS: STERILE WATER FOR INJECTION 20 ML IV (21:28)
[2024-01-17 21:29] LABS: Glucose - Point of Care 121 mg/dl (70-99)
[2024-01-17 21:52] VITALS: PULSE 71
[2024-01-17 22:06] VITALS: PULSE 71
[2024-01-17 23:08] VITALS: BP 162/78
[2024-01-18] MEDS: VANCOCIN 540 MG IV ×2 (05:37→17:10)
[2024-01-18 06:33] LABS: % Basophils 0.6 % (0-2); % Eosinophils 2.4 % (0-6); % Immature Granulocytes 0.6 % (0-0.5); % Lymphocytes 9.5 % (20.5-51.1); % Monocytes 6.8 % (1.7-9.3); % Neutrophils 80.1 % (42.2-75.2); Absolute Eosinophils 0.2 10^3/uL (0-0.7); Absolute Lymphocytes 0.6 10^3/uL (1.2-3.4); Absolute Monocytes 0.5 10^3/uL (0.1-0.6); Absolute Neutrophils 5.3 10^3/uL (1.4-6.5); Hemoglobin 10.6 g/dL (13.0-18.0); Mean Corp Hgb Conc. 31.2 g/dL (33.0-37.0); Mean Corpuscular Hgb 26.2 pg (27.0-31.0); Mean Corpuscular Volume 84.2 fL (80.0-94.0); Mean Platelet Volume 10.6 fL (7.4-10.4); Nucleated Red Blood Cells % 0 % (-); Platelet Count 205 10^3/uL (130-400); Red Blood Cell Count 4.04 10^6/uL (4.70-6.10); Red Cell Dist. Width 15.9 % (11.5-14.5); White Blood Cell Count 6.6 10^3/uL (4.8-10.8)
[2024-01-18 06:37] VITALS: BP 134/86
[2024-01-18 06:54] LABS: Blood Urea Nitrogen 12 mg/dl (9-20); Calcium 8.7 mg/dl (8.4-10.2); Carbon Dioxide 24 mmol/L (22-30); Chloride 99 mmol/L (98-107); Estimated Creatinine Clearance > 125 ml/min; Glucose 124 mg/dl (70-99); Potassium 4.1 mmol/L (3.5-5.1); Sodium 134 mmol/L (135-145); eGFR > 60.00
[2024-01-18] MEDS: NOVOLOG FLEXPEN-LOW RESISTANCE SC (07:47)
[2024-01-18 08:16] LABS: Glucose - Point of Care 136 mg/dl (70-99)
[2024-01-18] MEDS: PROTONIX 40 MG PO ×2 (08:36→19:49)
[2024-01-18] MEDS: VITAMIN B-12 1000 MCG PO (08:36)
[2024-01-18] MEDS: MILK OF MAGNESIA 30 ML PO (08:36)
[2024-01-18] MEDS: LIPITOR 40 MG PO (08:36)
[2024-01-18] MEDS: COLACE 100 MG PO ×2 (08:36→19:49)
[2024-01-18] MEDS: CALAN EXTENDED RELEASE 240 MG PO (08:36)
[2024-01-18] MEDS: ASPIR LOW (ENTERIC COATED) 81 MG PO (08:36)
[2024-01-18] MEDS: SENOKOT 17.2 MG PO ×2 (08:36→19:49)
[2024-01-18] MEDS: NEURONTIN 300 MG PO ×2 (08:36→19:49)
[2024-01-18] MEDS: CYMBALTA DELAYED RELEASE 30 MG PO (08:36)
[2024-01-18] MEDS: GLUCOPHAGE 500 MG PO ×2 (08:37→17:10)
[2024-01-18] MEDS: VITAMIN D3 (cholecalciferol) 50 MCG PO (08:37)
[2024-01-18] MEDS: LANTUS 0.4 UNITS SC ×2 (08:38→20:36)
[2024-01-18] MEDS: MIRALAX 17 GRAMS PO (08:38)
[2024-01-18] MEDS: ELIQUIS 5 MG PO ×2 (08:38→19:49)
--- NOTE | 2024-01-18 08:43 | W.PN.ORTHO ---
Today's Communication / Plan
-
Appreciate the primary team, including ID- continue Tx
Dispo per CM, appreciate their efforts
Continue WBAT RLE on walker/assistance
Eliquis and ASA 81mg for DVT ppx
Cx NGTD, continue IV ABX
Continue IV ABX
pain control, elevation and ice
Dressing to remain x 2 weeks
Outpatient Ortho follow-up [address] Rivera of [place]. Will continue to follow
Assessment
.
Distal Motor Intact: Yes
Dressing:
Clean, dry and intact. Mepilex in place right knee
Assessment:
POD#4 Right knee I&D with poly exchange
Overall, all things considered, feeling well
Calf soft, nontender
Plan
.
Surgery / Date: 01/14/2024 right TKA I&D with poly exchange
DVT Prophylaxis: Other (Eliquis)
Activity:
Out of bed. WBAT RLE on walker/assistance
PT/OT
Discharge Plan: Other (per CM)
Subjective
.
.:
Patient resting comfortably. Endorses mild pain about the right knee
Vital Signs and Labs
.
Vital Signs and Labs:
Lab Results
01/18/24 05:46
01/18/24 05:46
Temp Pulse Resp BP Pulse Ox
97.6 F 79 18 134/86 94
01/18/24 06:37 01/18/24 06:37 01/18/24 06:37 01/18/24 06:37 01/18/24 06:37
Non-invasive Hgb result: 11.7
[2024-01-18 10:35] LABS: Glucose - Point of Care 220 mg/dl (70-99)
[2024-01-18] MEDS: ROXICODONE 10 MG PO (10:38)
[2024-01-18] MEDS: NOVOLOG FLEXPEN 30 UNITS SC ×3 (10:40→18:21)
[2024-01-18 10:45] VITALS: BP 121/57
[2024-01-18 11:01] VITALS: PULSE 72
--- NOTE | 2024-01-18 11:06 | W.PN.ID1 ---
Addendum entered and electronically signed by Marlys Davidson MD 01/18/24 16:00:
I saw and evaluated the patient. I reviewed the resident�s note and agree with findings and plan as documented in the resident�s note.
# Late right knee PJI
- Synovial fluid >30,000 wbc, 91%PMN, no crystals
Gram stain: no organism. Cx: Diphtheroid, isolated from enrichment broth only.
- 01/15/24 s/p washout, exchange of polyethylene lining
- Multiple OR aerobic and anaerobic cultures negative.
- Treat the Diphtheroid with Vancomycin x 6 weeks through 02/28/24. No oral abx option for care home suppression.
Follow weekly CBC, CMP, Vanco trough, and CRP
- Home infusion sheet submitted to case management.
-PICC ordered.
# DM uncontrolled.
- Recommend tight glucose control.
Original Note:
Date of Service
Date of Service: January 18, 2024
Today's Communication
Narrow antibiotics to vancomycin only.
Will need 6 weeks of antibiotics
Picc Line today.
Assessment / Plan
Assessment/plan
# Late Right prosthetic joint infection
s/p right knee periprosthetic joint infection debridement irrigation with polyethylene exchange 01/13
# History of right total knee arthroplasty performed 2015
-OR aerobic and anaerobic cultures obtained with NO growth
-S/p joint aspiration fluid analysis which showed fluid WBC 35258, 91% PMN, no crystals seen.
-joint fluid Culture obtained on presentation with Diphtheroids.
-Will discontinue ceftriaxone
-Continue on IV vancomycin only for total of 6 weeks
-PICC line ordered
-Follow wbc, temp.
-follow clinically.
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
Paroxysmal atrial fibrillation
Essential hypertension
T2DM
GERD
Hypercholesterolemia
Depression
ÓSCAR
Chief Complaint
-: Other (Right knee pain)
Subjective / Review of Systems
Review of Systems: No Fever and No Chills
Vital Signs / Physical Exam
Vital Signs
Vital Signs
Temp Pulse Resp BP Pulse Ox
97.6 F 79 18 134/86 94
01/18/24 06:37 01/18/24 06:37 01/18/24 06:37 01/18/24 06:37 01/18/24 06:37
Physical Exam
Constitutional: No Acute Distress
Eyes: Sclera Anicteric
Pulmonary: Clear and Non Labored
Gastrointestinal: Soft, Non Tender and Non Distended
Musculoskeletal: Other (Right knee with dressing in place. )
Neurological: AO x 3
Objective Data
Lab Data
Lab Results
01/18/24 05:46
01/18/24 05:46
ESR 25 mm/hour (0-20) H 01/12/24 12:19
Estimated Creat Clear > 125 ml/min 01/18/24 05:46
Total Bilirubin 1.0 mg/dl (0.2-1.3) 01/12/24 12:19
AST 42 U/L (17-59) 01/12/24 12:19
ALT 34 U/L (0-50) 01/12/24 12:19
Alkaline Phosphatase 114 U/L (38-126) 01/12/24 12:19
C-Reactive Protein 46.30 mg/L (0.0-10.00) H 01/12/24 12:19
Most recent labs reviewed.
Micro Results:
01/14/24 18:32 Anaerobic Culture - Preliminary
Knee - Right NO ANAEROBES ISOLATED
01/14/24 18:31 Anaerobic Culture - Preliminary
Knee - Right NO ANAEROBES ISOLATED
01/14/24 18:29 Anaerobic Culture - Preliminary
Knee - Right NO ANAEROBES ISOLATED
01/14/24 18:30 Anaerobic Culture - Preliminary
Knee - Right NO ANAEROBES ISOLATED
01/14/24 18:28 Anaerobic Culture - Preliminary
Knee - Right NO ANAEROBES ISOLATED
01/14/24 17:26 Tissue Culture - Preliminary
Knee - Right No Growth After 72 Hours
Gram Stain - Preliminary
01/14/24 17:25 Tissue Culture - Preliminary
Knee - Right No Growth After 72 Hours
Gram Stain - Preliminary
01/14/24 17:23 Tissue Culture - Preliminary
Knee - Right No Growth After 72 Hours
Gram Stain - Preliminary
01/14/24 17:19 Tissue Culture - Preliminary
Knee - Right No Growth After 72 Hours
Gram Stain - Preliminary
01/14/24 15:15 Tissue Culture - Preliminary
Knee - Right No Growth After 72 Hours
Gram Stain - Preliminary
01/12/24 13:26 Body Fluid Culture - Final
Joint Fluid Diptheroids
Gram Stain - Final
X-ray of the right knee 01/12/2024: Status post right knee replacement which appears in satisfactory position. No radiographic evidence for acute fracture or dislocation. Suggestion of a small to moderate suprapatellar joint effusion.
--- NOTE | 2024-01-18 11:10 | CM ---
Addendum entered by Maddison Whaley 01/18/24 16:02:
Updated pt regarding cost related to supplies/medication
Waiting on PICC insertion
Rody at [facility] updated
Referral sent to [facility] for RN/PT/OT
Plan - home with [facility] and [facility] when medically ready
Addendum entered by Maddison Whaley 01/18/24 14:27:
Per Rody at [facility] -no cost for medication. Will have a co-pay of $140/week for supplies
Original Note:
Chart reviewed and met with pt
Pt will need IV antibiotics x 6 weeks
Received infusion sheet from Dr Davidson
Discussed with pt - no preference for agency
Faxed clinical information, infusion sheet, Face sheet to [facility] - [phone] for med pricing
--- NOTE | 2024-01-18 12:08 | PHA.VAN.FU ---
Vancomycin Assessment / Plan
- Assessment
Renal Function: Stable
WBC's are: WNL
In the past 24 hrs, patient has been: Afebrile
Concomitant Antimicrobials: cefepime
- Dosing Plan
Continue: vanc 2000mg q 12h
Dosing Comments: dose adjusted 01/16
- Monitoring Plan
Peak Level: 01/18 21:30
Trough Level: 01/19 0530
- Follow Up
Pharmacy will continue to follow.
Vancomycin Follow UP
- -
Patient Age: 68
Patient Sex: Male
Vancomycin Day #: 6
Indication: Bone And Joint
Requesting Provider: Jace Alvarez/ Dr Chance
Pertinent Antimicrobial Allergies:
levofloxacin - Rash
Height / Weight:
Height 5 ft 11 in
Actual Weight 159.71 kg
Pertinent Past Medical History: BMI ~49, DM; prosthetic joint infection
- Vital Signs / Lab Results
Temp Pulse Resp BP Pulse Ox
97.6 F 86 24 121/57 92
01/18/24 06:37 01/18/24 10:45 01/18/24 10:45 01/18/24 10:45 01/18/24 10:45
Lab Results - Hematology
01/17/24 01/18/24
05:40 05:46
WBC 6.0 6.6
Lab Results - Chemistry
01/17/24 01/18/24
05:40 05:46
BUN 12 12
Creatinine 0.7 0.7
Estimated Creat Clear > 125 > 125
Microbiology Results
01/14/24 18:32 Anaerobic Culture - Preliminary
Knee - Right NO ANAEROBES ISOLATED
01/14/24 18:31 Anaerobic Culture - Preliminary
Knee - Right NO ANAEROBES ISOLATED
01/14/24 18:29 Anaerobic Culture - Preliminary
Knee - Right NO ANAEROBES ISOLATED
01/14/24 18:30 Anaerobic Culture - Preliminary
Knee - Right NO ANAEROBES ISOLATED
01/14/24 18:28 Anaerobic Culture - Preliminary
Knee - Right NO ANAEROBES ISOLATED
01/14/24 17:26 Tissue Culture - Preliminary
Knee - Right No Growth After 72 Hours
Gram Stain - Preliminary
01/14/24 17:25 Tissue Culture - Preliminary
Knee - Right No Growth After 72 Hours
Gram Stain - Preliminary
01/14/24 17:23 Tissue Culture - Preliminary
Knee - Right No Growth After 72 Hours
Gram Stain - Preliminary
01/14/24 17:19 Tissue Culture - Preliminary
Knee - Right No Growth After 72 Hours
Gram Stain - Preliminary
01/14/24 15:15 Tissue Culture - Preliminary
Knee - Right No Growth After 72 Hours
Gram Stain - Preliminary
Therapeutic Drug Monitoring
Vancomycin Peak 15.4 ug/ml (18-26) L 01/16/24 23:38
Vancomycin Trough 10.2 ug/ml (5-20) 01/17/24 05:40
[2024-01-18 12:50] LABS: Glucose - Point of Care 189 mg/dl (70-99)
[2024-01-18] MEDS: NOVOLOG FLEXPEN-LOW RESISTANCE 1 UNITS SC (13:23)
[2024-01-18 16:00] VITALS: BP 160/79
--- NOTE | 2024-01-18 16:23 | W.PN.HOSP.TC ---
Today's Communication/Plan
-
Discontinue ceftriaxone
Continue vancomycin for 6 weeks of antibiotics (02/28/2024 last day)
ID arranging for home antibiotics
Escalate sliding scale insulin for better glucose control
Likely DC tomorrow
Assessment / Plan
Assessment / Plan
#Right knee prosthetic joint infection
#H/O right total knee arthroplasty (2015)
-Presented with WBC 31,000, elevated CRP and ESR
-Knee x-ray showed moderate suprapatellar effusion, s/p aspiration
-S/p washout on 01/15/2024 with exchange of polyethylene liner
-Joint fluid culture grew diphtheroid; OR cultures remain negative
-No oral antibiotic regimen available for long-term suppression
-PICC line ordered, ID to arrange home antibiotic
-Per ID will need vancomycin for 6-week course (last day 02/28/2024)
#T2DM with hyperglycemia
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
-Home regimen included Tresiba 60 units BID NovoLog 45 unit AC, metformin
-Currently receiving Lantus 40 units BID and NovoLog 30 unit AC
-Increased ISS to resistant better glucose control
-BG goal 100-150 with underlying prosthetic joint infection
#Paroxysmal AF
-Nonvalvular; home regimen includes verapamil and Eliquis
-No known history of electrophysiologic interventions
-Currently in sinus rhythm
#Hypertension
-Home medications include verapamil; not on first-line agents
-No history of hypertensive systemic disease
-Blood pressure currently well-controlled
#ÓSCAR on CPAP
-CPAP ordered here, seems very compliant
#GERD
-No known history of PE or erosive esophagitis
-Home medications include daily PPI
#Dyslipidemia
-No known ASCVD history, remains on moderate intensity statin
#Chronic constipation
-Remains on bowel regimen
DVT prophylaxis: Eliquis
Diet: Carbohydrate controlled
CODE STATUS: Full code
Anticipated Discharge: Within 24 hours
Subjective/Interval History
-
Date of Service: January 18, 2024
Seen and examined at the bedside. No acute events reported overnight. AFVSS this morning
Became slightly lightheaded, per nursing, was sitting in the chair. Was in the chair for quite a while, low suspicion for orthostasis. The spell resolved without intervention rather quickly
Denies any acute complaints today. States he feels well, denies chest pain, dyspnea, fevers or chills, GI or urinary issues, bleeding or bruising
Objective Data
-
Labs:
Laboratory Results
01/18/24
05:46
WBC 6.6
Hgb 10.6 L
Hct 34.0 L
Plt Count 205
Sodium 134 L
Potassium 4.1
Chloride 99
Carbon Dioxide 24
BUN 12
Creatinine 0.7
Glucose 124 H
Calcium 8.7
Vital Signs:
Vital Signs
Temp Pulse Resp BP Pulse Ox
97.6 F 86 24 121/57 92
01/18/24 06:37 01/18/24 10:45 01/18/24 10:45 01/18/24 10:45 01/18/24 10:45
I&O
01/17/24 01/18/24 01/19/24
06:59 06:59 06:59
Intake Total 1974 / 1974 2620 / 2620
Output Total 1205 / 1205 2094 / 2094
Balance 770 / 770 525 / 525
Review of Systems
-
History Source: Patient
All other systems: Reviewed and negative
Physical Exam
-
General: Well Developed, No Apparent Distress, Comfortable and Morbidly Obese
HEENT: Normocephalic, Atraumatic, Moist Mucous Membranes and Anicteric
Respiratory: Clear to Auscultation and Non Labored Respirations; Negative Wheezes, Rales or Rhonchi
Cardiac: Regular Rhythm and S1/S2; Negative Murmur, Rub or Gallop
GI: Soft, Nontender, Nondistended and Normal Bowel Sounds
Musculoskeletal: No Clubbing, No Cyanosis and No Edema
Skin: Warm, Dry and Normal Turgor; Negative Rash
Neuro: AO x 3 and Nonfocal/Grossly Intact
Psych: Calm
Data Reviewed
-
Labs: Labs Reviewed by me and Discussed with Patient
[2024-01-18 16:57] LABS: Glucose - Point of Care 88 mg/dl (70-99)
[2024-01-18 20:49] LABS: Glucose - Point of Care 111 mg/dl (70-99)
[2024-01-18] MEDS: CYMBALTA DELAYED RELEASE 60 MG PO (21:34)
[2024-01-18] MEDS: DITROPAN 5 MG PO (21:34)
[2024-01-18] MEDS: SEROQUEL 200 MG PO (21:34)
[2024-01-18 22:45] VITALS: PULSE 78
[2024-01-18 23:17] VITALS: BP 157/78
[2024-01-19 03:15] VITALS: BP 151/92
[2024-01-19 04:39] LABS: % Basophils 0.7 % (0-2); % Immature Granulocytes 0.7 % (0-0.5); % Lymphocytes 13.3 % (20.5-51.1); % Monocytes 7.8 % (1.7-9.3); % Neutrophils 74.5 % (42.2-75.2); Absolute Eosinophils 0.2 10^3/uL (0-0.7); Absolute Lymphocytes 0.8 10^3/uL (1.2-3.4); Absolute Monocytes 0.5 10^3/uL (0.1-0.6); Absolute Neutrophils 4.5 10^3/uL (1.4-6.5); Hematocrit 32.1 % (39.0-52.0); Hemoglobin 10.1 g/dL (13.0-18.0); Mean Corp Hgb Conc. 31.5 g/dL (33.0-37.0); Mean Corpuscular Hgb 25.8 pg (27.0-31.0); Mean Corpuscular Volume 81.9 fL (80.0-94.0); Nucleated Red Blood Cells % 0 % (-); Platelet Count 235 10^3/uL (130-400); Red Blood Cell Count 3.92 10^6/uL (4.70-6.10); Red Cell Dist. Width 16.2 % (11.5-14.5)
[2024-01-19] MEDS: VANCOCIN 540 MG IV (05:00)
[2024-01-19 05:06] LABS: Blood Urea Nitrogen 13 mg/dl (9-20); Calcium 8.6 mg/dl (8.4-10.2); Carbon Dioxide 27 mmol/L (22-30); Chloride 100 mmol/L (98-107); Estimated Creatinine Clearance > 125 ml/min; Glucose 116 mg/dl (70-99); Potassium 3.9 mmol/L (3.5-5.1); Sodium 137 mmol/L (135-145); eGFR > 60.00
[2024-01-19 05:45] LABS: Glucose - Point of Care 133 mg/dl (70-99)
[2024-01-19 07:00] VITALS: BP 155/81
--- NOTE | 2024-01-19 07:29 | W.PN.ORTHO ---
Today's Communication / Plan
-
Continue WBAT RLE on walker/assistance
Eliquis and ASA 81mg for DVT ppx
Cx NGTD
Appreciate ID recommendations. Plan for IV vancomycin x6 weeks. PICC line has been ordered
Continue with pain control as needed
Dressing to remain x 2 weeks
Outpatient Ortho follow-up [address] Rivera of [place].
Case management consult for discharge planning. Looks like home with home infusion
Assessment
.
Dressing:
Clean, dry and intact.
Plan
.
Surgery / Date: 01/14/2024 right TKA I&D with poly exchange
DVT Prophylaxis: Other (Eliquis)
Activity:
Out of bed.
PT/OT
Subjective
.
.:
Patient sleeping on my evaluation. I did not disturb
Vital Signs and Labs
.
Vital Signs and Labs:
Lab Results
01/19/24 04:23
01/19/24 04:23
Temp Pulse Resp BP Pulse Ox
98.6 F 78 20 151/92 93
01/19/24 03:15 01/19/24 03:15 01/19/24 03:15 01/19/24 03:15 01/19/24 03:15
Non-invasive Hgb result: 12.4
[2024-01-19 08:03] LABS: Glucose - Point of Care 124 mg/dl (70-99)
[2024-01-19] MEDS: SENOKOT 17.2 MG PO (08:33)
[2024-01-19] MEDS: ASPIR LOW (ENTERIC COATED) 81 MG PO (08:33)
[2024-01-19] MEDS: GLUCOPHAGE 500 MG PO (08:33)
[2024-01-19] MEDS: VITAMIN D3 (cholecalciferol) 50 MCG PO (08:33)
[2024-01-19] MEDS: PROTONIX 40 MG PO (08:33)
[2024-01-19] MEDS: CALAN EXTENDED RELEASE 240 MG PO (08:33)
[2024-01-19] MEDS: CYMBALTA DELAYED RELEASE 30 MG PO (08:33)
[2024-01-19] MEDS: VITAMIN B-12 1000 MCG PO (08:33)
[2024-01-19] MEDS: ELIQUIS 5 MG PO (08:34)
[2024-01-19] MEDS: NOVOLOG FLEXPEN-MODERATE RESISTANCE SC (08:34)
[2024-01-19] MEDS: MIRALAX PO (08:34)
[2024-01-19] MEDS: LANTUS 0.4 UNITS SC (08:34)
[2024-01-19] MEDS: LIPITOR 40 MG PO (08:34)
[2024-01-19] MEDS: COLACE 100 MG PO (08:34)
[2024-01-19] MEDS: NEURONTIN 300 MG PO (08:35)
--- NOTE | 2024-01-19 09:07 | CM ---
Addendum entered by Kallie Mayo 01/19/24 12:31:
update provided to patient daughter and teaching in progress. CM will continue to follow for discharge planning needs.
Addendum entered by Kallie Mayo 01/19/24 11:08:
Patient seen at bedside, [facility] completed and signed form on chart. Patient to be seen by [facility] for teaching at noon. Patient aware. Patient also to be followed by [facility] for home PT/OT and nursing. Patient aware. CM updated patient re call
and patient states he is going home and that the wants him to go to [facility] with her, but he does not want to do so. CM called again to patient and another VM left. Physician in to review and plan is for teaching and discharge later today. CM
will continue to follow for discharge planning needs.
Plan; home with [facility] and [facility].
Original Note:
CM returned phone call to patient to review options re discharge plan, VM left.
[2024-01-19] MEDS: NOVOLOG FLEXPEN 30 UNITS SC (09:41)
[2024-01-19 11:00] VITALS: BP 141/83
--- NOTE | 2024-01-19 11:38 | PHA.VAN.FU ---
Vancomycin Assessment / Plan
- Assessment
Renal Function: Stable
WBC's are: WNL
In the past 24 hrs, patient has been: Afebrile
- Dosing Plan
Currently on 2000mg iv q12h, expect patient is still accumulating due to body habitus and long-term dose will most-likely be lower. Peak and trough levels to be drawn tonight after 5th dose of current regimen.
- Monitoring Plan
Peak Level: 01/18 2130
Trough Level: 01/19 530
- Follow Up
Pharmacy will continue to follow.
Vancomycin Follow UP
- -
Patient Age: 68
Patient Sex: Male
Vancomycin Day #: 7
Indication: Bone And Joint
Requesting Provider: Jace Alvarez/ Dr Chance
Pertinent Antimicrobial Allergies:
levofloxacin - Rash
Height / Weight:
Height 5 ft 11 in
Actual Weight 159.71 kg
Pertinent Past Medical History: BMI ~49, DM; prosthetic joint infection
- Vital Signs / Lab Results
Temp Pulse Resp BP Pulse Ox
97.7 F 73 18 155/81 94
01/19/24 07:00 01/19/24 07:00 01/19/24 07:00 01/19/24 07:00 01/19/24 07:00
Lab Results - Hematology
01/17/24 01/18/24 01/19/24
05:40 05:46 04:23
WBC 6.0 6.6 6.0
Lab Results - Chemistry
01/17/24 01/18/24 01/19/24
05:40 05:46 04:23
BUN 01 20 13
Creatinine 0.7 0.7 0.7
Estimated Creat Clear > 125 > 125 > 125
Microbiology Results
01/14/24 17:26 Tissue Culture - Final
Knee - Right No Growth After 72 Hours
Gram Stain - Final
01/14/24 17:23 Tissue Culture - Final
Knee - Right No Growth After 72 Hours
Gram Stain - Final
01/14/24 15:15 Tissue Culture - Final
Knee - Right No Growth After 72 Hours
Gram Stain - Final
01/14/24 17:25 Tissue Culture - Final
Knee - Right No Growth After 72 Hours
Gram Stain - Final
01/14/24 17:19 Tissue Culture - Final
Knee - Right No Growth After 72 Hours
Gram Stain - Final
01/14/24 18:32 Anaerobic Culture - Final
Knee - Right NO ANAEROBES ISOLATED
01/14/24 18:31 Anaerobic Culture - Final
Knee - Right NO ANAEROBES ISOLATED
01/14/24 18:29 Anaerobic Culture - Final
Knee - Right NO ANAEROBES ISOLATED
01/14/24 18:28 Anaerobic Culture - Final
Knee - Right NO ANAEROBES ISOLATED
01/14/24 18:30 Anaerobic Culture - Final
Knee - Right NO ANAEROBES ISOLATED
Therapeutic Drug Monitoring
Vancomycin Peak 15.4 ug/ml (18-26) L 01/16/24 23:38
Vancomycin Trough 10.2 ug/ml (5-20) 01/17/24 05:40
--- NOTE | 2024-01-19 11:44 | W.PN.HOSP.TC ---
Today's Communication/Plan
-
Discharged with home antibiotic infusions
Assessment / Plan
Assessment / Plan
#Right knee prosthetic joint infection
#H/O right total knee arthroplasty (2016)
-Presented with WBC 31,000, elevated CRP and ESR
-Knee x-ray showed moderate suprapatellar effusion, s/p aspiration
-S/p washout on 01/15/2024 with exchange of polyethylene liner
-Joint fluid culture grew diphtheroid; OR cultures remain negative
-No oral antibiotic regimen available for long-term suppression
-PICC line ordered, ID to arrange home antibiotic
-Per ID will need vancomycin for 6-week course (last day 02/28/2024)
#T2DM with hyperglycemia
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
-Home regimen included Tresiba 60 units BID NovoLog 45 unit AC, metformin
-Currently receiving Lantus 40 units BID and NovoLog 30 unit AC
-Increased ISS to resistant better glucose control
-BG goal 100-150 with underlying prosthetic joint infection
#Paroxysmal AF
-Nonvalvular; home regimen includes verapamil and Eliquis
-No known history of electrophysiologic interventions
-Currently in sinus rhythm
#Hypertension
-Home medications include verapamil; not on first-line agents
-No history of hypertensive systemic disease
-Blood pressure currently well-controlled
#ÓSCAR on CPAP
-CPAP ordered here, seems very compliant
#GERD
-No known history of PE or erosive esophagitis
-Home medications include daily PPI
#Dyslipidemia
-No known ASCVD history, remains on moderate intensity statin
#Chronic constipation
-Remains on bowel regimen
DVT prophylaxis: Eliquis
Diet: Carbohydrate controlled
CODE STATUS: Full code
Anticipated Discharge: Today
Subjective/Interval History
-
Date of Service: January 19, 2024
Seen and examined at the bedside. No acute interval overnight. AFVSS this morning
Minimal knee pain, improving daily
No acute complaints, feels ready to leave the hospital
Objective Data
-
Labs:
Laboratory Results
01/19/24
04:23
WBC 6.0
Hgb 10.1 L
Hct 32.1 L
Plt Count 235
Sodium 137
Potassium 3.9
Chloride 100
Carbon Dioxide 27
BUN 13
Creatinine 0.7
Glucose 116 H
Calcium 8.6
Vital Signs:
Vital Signs
Temp Pulse Resp BP Pulse Ox
97.8 F 78 18 141/83 94
01/19/24 11:00 01/19/24 11:00 01/19/24 11:00 01/19/24 11:00 01/19/24 11:00
I&O
01/18/24 01/19/24 01/20/24
06:59 06:59 06:59
Intake Total 2620 / 2620 2580 / 2580
Output Total 2095 / 2095 1450 / 1450
Balance 525 / 525 1130 / 1130
Review of Systems
-
History Source: Patient
All other systems: Reviewed and negative
Physical Exam
-
General: Well Developed, No Apparent Distress, Comfortable and Morbidly Obese
HEENT: Normocephalic, Atraumatic, Moist Mucous Membranes and Anicteric
Respiratory: Clear to Auscultation and Non Labored Respirations
Cardiac: Regular Rhythm and S1/S2; Negative Murmur, Rub or Gallop
GI: Soft, Nontender, Nondistended and Normal Bowel Sounds
Musculoskeletal: No Clubbing, No Cyanosis, No Edema and Other (Right knee without erythema or fluctuance, mild swelling with mild tenderness to palpation)
Skin: Warm, Dry and Normal Turgor; Negative Rash
Neuro: AO x 3 and Nonfocal/Grossly Intact
Psych: Calm
Data Reviewed
-
Labs: Labs Reviewed by me, Discussed with Patient and Discussed with Family
[2024-01-19 12:49] LABS: Glucose - Point of Care 209 mg/dl (70-99)
[2024-01-19] MEDS: NOVOLOG FLEXPEN-MODERATE RESISTANCE 3 UNITS SC (13:33)
[2024-01-19] MEDS: NOVOLOG FLEXPEN SC (13:34)
--- NOTE | 2024-01-19 14:01 | W.PN.ID1 ---
Date of Service
Date of Service: January 19, 2024
Today's Communication
DC home today.
Assessment / Plan
# Late right knee PJI
- Synovial fluid >30,000 wbc, 91%PMN, no crystals
Gram stain: no organism. Cx: Diphtheroid, isolated from enrichment broth only.
- 01/15/24 s/p washout, exchange of polyethylene lining
- Multiple OR aerobic and anaerobic cultures negative.
- Treat the Diphtheroid with Vancomycin x 6 weeks through 02/28/24. 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
Follow weekly CBC, CMP, Vanco trough, and CRP
-DC home today.
- Follow-up with me in 4 weeks.
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
Paroxysmal atrial fibrillation
Essential hypertension
T2DM
GERD
Hypercholesterolemia
Depression
ÓSCAR
Chief Complaint
-: Other (Right knee pain)
Subjective / Review of Systems
Daughter at bedside.
Knee pain stable.
Vital Signs / Physical Exam
Vital Signs
Vital Signs
Temp Pulse Resp BP Pulse Ox
97.8 F 78 18 141/83 94
01/19/24 11:00 01/19/24 11:00 01/19/24 11:00 01/19/24 11:00 01/19/24 11:00
Physical Exam
Constitutional: No Acute Distress and Comfortable
Pulmonary: Clear
Gastrointestinal: Soft, Non Tender and Non Distended
Musculoskeletal: Other (right knee dressing dry.)
Neurological: AO x 3
Lines: PICC
Objective Data
Lab Data
Lab Results
01/19/24 04:23
01/19/24 04:23
ESR 25 mm/hour (0-20) H 01/12/24 12:19
Estimated Creat Clear > 125 ml/min 01/19/24 04:23
Total Bilirubin 1.0 mg/dl (0.2-1.3) 01/12/24 12:19
AST 42 U/L (17-59) 01/12/24 12:19
ALT 34 U/L (0-50) 01/12/24 12:19
Alkaline Phosphatase 114 U/L (38-126) 01/12/24 12:19
C-Reactive Protein 46.30 mg/L (0.0-10.00) H 01/12/24 12:19
Most recent labs reviewed.
Micro Results:
01/14/24 17:26 Tissue Culture - Final
Knee - Right No Growth After 72 Hours
Gram Stain - Final
01/14/24 17:23 Tissue Culture - Final
Knee - Right No Growth After 72 Hours
Gram Stain - Final
01/14/24 15:15 Tissue Culture - Final
Knee - Right No Growth After 72 Hours
Gram Stain - Final
01/14/24 17:25 Tissue Culture - Final
Knee - Right No Growth After 72 Hours
Gram Stain - Final
01/14/24 17:19 Tissue Culture - Final
Knee - Right No Growth After 72 Hours
Gram Stain - Final
01/14/24 18:32 Anaerobic Culture - Final
Knee - Right NO ANAEROBES ISOLATED
01/14/24 18:31 Anaerobic Culture - Final
Knee - Right NO ANAEROBES ISOLATED
01/14/24 18:29 Anaerobic Culture - Final
Knee - Right NO ANAEROBES ISOLATED
01/14/24 18:28 Anaerobic Culture - Final
Knee - Right NO ANAEROBES ISOLATED
01/14/24 18:30 Anaerobic Culture - Final
Knee - Right NO ANAEROBES ISOLATED
01/12/24 13:26 Body Fluid Culture - Final
Joint Fluid Diptheroids
Gram Stain - Final
X-ray of the right knee 01/12/2024: Status post right knee replacement which appears in satisfactory position. No radiographic evidence for acute fracture or dislocation. Suggestion of a small to moderate suprapatellar joint effusion.
--- NOTE | 2024-01-19 15:01 | W.DCSUMMARY ---
Discharge Summary
Discharge Data
Date of Admission: 01/12/24
Date of Discharge: 01/19/24
-
Pending Results: No
Hospital Course
68-year-old male with AF on Eliquis, ÓSCAR on CPAP, IDDM, NAFLD, GERD C/B Florez's esophagus, CAD, HLD, BPH, H/O TIA, morbid obesity that presented with right knee pain and swelling. Found to have septic arthritis of right prosthetic knee.
Diagnosis confirmed with joint aspiration fluid assessment. Was taken to the OR with orthopedics for washout and debridement. Cultures grew diphtheroid species. Infectious disease was consulted, patient was treated with IV vancomycin and
ceftriaxone. Ceftriaxone discontinued following culture result. IV vancomycin to be continued through home infusions through 02/28/2024. Should have follow-up with orthopedist in office. Provided 5 days of oxycodone for breakthrough pain.
Discharge Plan
-
Patient Disposition: Home (Routine Discharge)
Discharge Diagnosis/Procedures: Infection of prosthetic right knee replacement
Condition: Good
Diet: Diabetic, Carb Controlled
Activity: As tolerated
Driving Restrictions: No driving for 24 hours
Bathing Restrictions: OK to Shower
Other Services: PT
Activity Restrictions/Additional Instructions:
Schedule follow-up appointment with family doctor, should be seen within 1 to 2 weeks of discharge
Follow-up with orthopedist in office in 2 weeks
Referral for infectious disease specialist provided
Instructions: Septic arthritis
Referrals:
Tiana Jasso MD [Family Provider] -
Gerry Rivera MD [Active] -
Marlys Davidson MD [Active] - in three to four weeks
Additional Discharge Medication Instructions: Continue vancomycin 2000 mg every 12 hours IV through 02/28/2024
Decreased insulin aspart (NovoLog) from 45 units with meals to 30 units with meals
Decreased insulin degludec (Tresiba) from 60 units twice daily to 40 units twice daily
Take oxycodone 5 mg as needed for moderate to severe knee pain
Prescriptions:
New
insulin aspart U-100 100 unit/mL (3 mL) Insulin Pen
30 unit SC MEALS 30 Days Qty: 27 0RF
oxycodone 5 mg Tablet
5 mg PO Q8HPRN PRN (Reason: moderate-severe pain) 5 Days Qty: 15 0RF
Vancomycin [Vancocin] 2000 MG
0.9% Sodium Chloride 500 ml [Nss] 500 ML
270 mls/hr IV Q12H
Reason for use: Knee infection
Last day of antibiotics 02/27/2023
Ordered By: Ranjan Moyer DO
Last Taken: 01/19/24 05:00 540 mls
Protocol: None
Protocol Text:
DOSING PER PHARMACY
Please contact pharmacy with any questions.
Continued
quetiapine 100 MG tablet
200 mg PO HS
pantoprazole 40 MG tablet,delayed release (DR/EC)
40 mg PO BID
oxybutynin chloride 5 MG tablet
5 mg PO HS
verapamil 240 MG tablet extended release
240 mg PO DAILY
atorvastatin 40 MG tablet
40 mg PO DAILY Qty: 1 0RF
riboflavin (vitamin B2) 100 mg Tablet
100 mg PO DAILY
cyanocobalamin (vitamin B-12) 1,000 mcg Tablet
1,000 mcg PO DAILY
duloxetine 30 mg Capsule,Delayed Release(Dr/Ec)
30 mg PO DAILY
duloxetine 60 mg Capsule,Delayed Release(Dr/Ec)
60 mg PO HS
metformin 500 MG tablet
500 mg PO BID@0800,1700
aspirin 81 mg Tablet,Delayed Release (Dr/Ec)
81 mg PO DAILY
gabapentin 300 mg Capsule
300 mg PO BID
Eliquis 5 mg Tablet
5 mg PO BID
azelastine 137 mcg (0.1 %) [place],Non-Aerosol
1 spray INTRANASAL BIDPRN PRN (Reason: congestion)
cholecalciferol (vitamin D3) [Vitamin D3] 50 mcg (2,000 unit) Tablet
50 mcg PO DAILY
Changed
insulin degludec [Tresiba FlexTouch U-100] 100 unit/mL (3 mL) Insulin Pen
40 unit SC BID 30 Days Qty: 24 0RF
Discontinued
insulin aspart U-100 [Novolog FlexPen U-100 Insulin] 100 unit/mL (3 mL) Insulin Pen
45 unit SC MEALS
Discharge Orders:
Discharge Patient (As Directed); Ordered 01/19/24
Ordered By: Ranjan Moyer
Discharge Date and Time
Discharge Date/Time: 01/19/24 14:08
Print Language: CYPRIOT
== END 2024-01-19 14:08 | disposition home health service (06) | DRG 486 ==
LOC: 2 SOUTH 16:54
PROVIDERS: General Practice; Hospitalist; Physician Assistant; Registered Nurse; Student in an Organized Health Care Education/Training Program; ADMITTING PHYSICIAN Hospitalist; ATTENDING PHYSICIAN Internal Medicine; CONSULT PHYSICIAN Orthopaedic Surgery; EMERGENCY PHYSICIAN Emergency Medicine; FAMILY PHYSICIAN Internal Medicine; OTHER PHYSICIAN Internal Medicine Infectious Disease
PROC: 0SPC09Z Removal of Liner from Right Knee Joint, Open Approach (ICD-10-PCS; 2024-01-14)
PROC: 0SUV09Z Supplement Right Knee Joint, Tibial Surface with Liner, Open Approach (ICD-10-PCS; 2024-01-14)
DX: T84.53XA Infection and inflammatory reaction due to internal right knee prosthesis, initial encounter (principal); Z68.42 Body mass index [BMI] 45.0-49.9, adult; I48.0 Paroxysmal atrial fibrillation; I10 Essential (primary) hypertension; E11.40 Type 2 diabetes mellitus with diabetic neuropathy, unspecified; E11.36 Type 2 diabetes mellitus with diabetic cataract; K21.9 Gastro-esophageal reflux disease without esophagitis; E78.00 Pure hypercholesterolemia, unspecified; F32.A Depression, unspecified; Y83.1 Surgical operation with implant of artificial internal device as the cause of abnormal reaction of the patient, or of later complication, without mention of misadventure at the time of the procedure; E66.01 Morbid (severe) obesity due to excess calories
CPT/HCPCS: 71045; 73560; 73564; 80048; 80053; 80202; 82962; 83036; 85025; 85027; 85652; 86140; 86850; 86900; 86901; 87015; 87070; 87075; 87176; 87205; 89051; 89060; 94660; 96374; 96376; 97110; 97116; 97162; 97166; 97530; 97535; 99285; C1776

== ENCOUNTER → 2024-03-10 08:14 | Outpatient (REF) | payer MEDICARE, OTHER, SELFPAY ==
[2024-03-10 10:32] LABS: % Basophils 0.5 % (0-2); % Eosinophils 11.4 % (0-6); % Immature Granulocytes 0.3 % (0-0.5); % Lymphocytes 7.8 % (20.5-51.1); % Monocytes 7.3 % (1.7-9.3); % Neutrophils 72.7 % (42.2-75.2); Absolute Eosinophils 0.7 10^3/uL (0-0.7); Absolute Lymphocytes 0.5 10^3/uL (1.2-3.4); Absolute Monocytes 0.4 10^3/uL (0.1-0.6); Absolute Neutrophils 4.2 10^3/uL (1.4-6.5); Hematocrit 33.4 % (39.0-52.0); Hemoglobin 10.1 g/dL (13.0-18.0); Mean Corp Hgb Conc. 30.2 g/dL (33.0-37.0); Mean Corpuscular Hgb 24.8 pg (27.0-31.0); Mean Corpuscular Volume 82.1 fL (80.0-94.0); Mean Platelet Volume 10.4 fL (7.4-10.4); Nucleated Red Blood Cells % 0 % (-); Platelet Count 216 10^3/uL (130-400); Red Blood Cell Count 4.07 10^6/uL (4.70-6.10); Red Cell Dist. Width 15.6 % (11.5-14.5); White Blood Cell Count 5.8 10^3/uL (4.8-10.8)
[2024-03-10 11:02] LABS: ALT (SGPT) 22 U/L (0-50); AST (SGOT) 33 U/L (17-59); Albumin 3.7 g/dl (3.5-5.0); Alkaline Phosphatase 170 U/L (38-126); Blood Urea Nitrogen 13 mg/dl (9-20); Calcium 8.8 mg/dl (8.4-10.2); Carbon Dioxide 28 mmol/L (22-30); Chloride 98 mmol/L (98-107); Glucose 155 mg/dl (70-99); HDL Cholesterol 33 mg/dl; LDL Cholesterol, Calculated 31 mg/dl; Potassium 4.2 mmol/L (3.5-5.1); Sodium 136 mmol/L (135-145); Total Bilirubin 0.7 mg/dl (0.2-1.3); Total Cholesterol 79 mg/dl (50-199); Total Protein 6.3 g/dl (6.3-8.2); Triglyceride 78 mg/dl (10-149); Very Low Density Lipoprotein 15 mg/dl (0-30); eGFR > 60.00
[2024-03-10 11:47] LABS: PSA, Total - Screen 0.75 ng/ml (0.0-4.0)
[2024-03-10 13:02] LABS: Uric Acid 4.3 mg/dl (3.5-8.5)
[2024-03-11 16:47] LABS: Lyme Antibody Screen, EIA Negative (Negative)
[2024-03-11 20:45] LABS: ANA, IgG Reflex to HEp-2 None Detected (None Detected)
== END ==
LOC: HWLAB 08:14
PROVIDERS: ATTENDING PHYSICIAN Internal Medicine Infectious Disease; FAMILY PHYSICIAN Internal Medicine
DX: M06.4 Inflammatory polyarthropathy (principal); T84.50XD Infection and inflammatory reaction due to unspecified internal joint prosthesis, subsequent encounter; E78.2 Mixed hyperlipidemia; Z12.5 Encounter for screening for malignant neoplasm of prostate
CPT/HCPCS: 36415; 80053; 80061; 84550; 85025; 86038; 86140; 86618; 87040; G0103

== ENCOUNTER 2024-04-11 14:16 | Emergency (ER) | payer MEDICARE, OTHER, SELFPAY ==
[2024-04-11 14:26] VITALS: BP 121/81
[2024-04-11 14:55] LABS: % Basophils 0.3 % (0-2); % Eosinophils 3.3 % (0-6); % Immature Granulocytes 0.7 % (0-0.5); % Lymphocytes 9.6 % (20.5-51.1); % Monocytes 8.3 % (1.7-9.3); % Neutrophils 77.8 % (42.2-75.2); Absolute Eosinophils 0.2 10^3/uL (0-0.7); Absolute Lymphocytes 0.6 10^3/uL (1.2-3.4); Absolute Monocytes 0.5 10^3/uL (0.1-0.6); Absolute Neutrophils 4.8 10^3/uL (1.4-6.5); Hematocrit 34.1 % (39.0-52.0); Hemoglobin 10.7 g/dL (13.0-18.0); Mean Corp Hgb Conc. 31.4 g/dL (33.0-37.0); Mean Corpuscular Hgb 24.9 pg (27.0-31.0); Mean Corpuscular Volume 79.5 fL (80.0-94.0); Mean Platelet Volume 9.6 fL (7.4-10.4); Nucleated Red Blood Cells % 0 % (-); Platelet Count 229 10^3/uL (130-400); Red Blood Cell Count 4.29 10^6/uL (4.70-6.10); Red Cell Dist. Width 17.1 % (11.5-14.5); White Blood Cell Count 6.1 10^3/uL (4.8-10.8)
[2024-04-11 15:13] LABS: ALT (SGPT) 22 U/L (0-50); AST (SGOT) 34 U/L (17-59); Albumin 3.9 g/dl (3.5-5.0); Alkaline Phosphatase 158 U/L (38-126); Blood Urea Nitrogen 11 mg/dl (9-20); Calcium 9.1 mg/dl (8.4-10.2); Carbon Dioxide 25 mmol/L (22-30); Chloride 100 mmol/L (98-107); Glucose 124 mg/dl (70-99); Sodium 136 mmol/L (135-145); Total Bilirubin 1.4 mg/dl (0.2-1.3); Total Protein 6.4 g/dl (6.3-8.2); eGFR > 60.00
[2024-04-11 15:23] LABS: Troponin I < 0.012 ng/ml
[2024-04-11 17:34] VITALS: BP 144/78
[2024-04-11 17:36] VITALS: BMI 47.9
[2024-04-11 18:00] VITALS: BP 144/73
--- NOTE | 2024-04-11 18:28 | ED.GENMED ---
History of Present Illness
General
Chief Complaint: Chest Pain
Source: patient and records
Time Seen by Provider: 04/11/24 18:00
History of Present Illness
History of Present Illness:
68-year-old male with past medical history of previous traumatic brain injury, TIA, paroxysmal A-fib, hypertension, previous GI bleeding, insulin-dependent diabetes presenting to the emergency department for evaluation of a multitude of symptoms
including chest discomfort that he states has been ongoing for 'quite a while' but got worse last night around 1 AM with patient stating he was awake at the time and described the sensation as if someone was squeezing his chest with the intensity
waxing and waning but never fully resolved. Patient notes that he has had associated cough, abdominal discomfort, right knee discomfort, right foot discomfort, visual hallucinations, 1 episode of sweating today, word finding difficulty and
generally feeling unwell. Patient states he is unsure as to if these symptoms all seem intertwined. He does note that he has an appointment with his orthopedic doctor tomorrow for evaluation of his right knee for which she was admitted due to
septic arthritis this past November. Patient denies any fevers, chills, rigors, nausea, vomiting, bowel changes or any other concerns. Social history was negative for tobacco use or/IV drug abuse. Patient does live at home with his with whom
he is the primary care.
Past History
Past History
ED Past Medical History: Arrthythmia, CVA, GERD, HTN, Hypercholesterolemia, IDDM, Psychiatric (Depression), Other (sleep apnea, CPAP) and Other (Diverticulitis, GI bleed)
ED Past Surgical History: Orthopedic (bilateral knee replacements) and Other (Left eye cataract)
Social History
Tobacco: Non-smoker
Alcohol: None
Drug: None
Personal:
Living: with family
Family History
Family History: Other (Brother with CAD at age 56. Mother had congestive heart failure. His father had a pacemaker.)
Review of Systems
Review of Systems
All Other Systems: ROS reviewed and negative except as documented in HPI and ROS
Phy Exam
Physical Exam
Physical Exam:
GENERAL: Alert , in no apparent distress, significantly overweight
HEAD: Normocephalic atraumatic
EYE: Clear conjunctiva
NECK: Supple
ENT: o/p clr, mmm.
CARDIAC: Regular rate and rhythm .
LUNGS: Clear breath sounds bilaterally, no acute respiratory distress, no wheezes/rales/rhonchi
ABDOMEN: Soft, without focal tenderness, no r/g, no cvat
NEUROLOGICAL: Alert and oriented, no focal neuro deficits, speaking full sentences, no aphasia or dysarthria
SKIN: Warm and dry, skin intact.
MUSCULOSKELETAL: No edema, well perfused. Right knee has no overlying erythema, edema or effusions
PSYCH: Normal and appropriate interaction.
Scores
Heart Failure Risk
Heart Failure Risk Score: Not Applicable
Heart Score for Chest Pain Patients
STEMI patient?: No
History: Slightly or Non-Suspicious
ECG: Normal
Age: >/= 65 years
Risk Factors: 1 or 2 Risk Factors
Troponin: </= Normal Limit
Heart Score for Chest Pain Patients: 3
Heart Score Risk: 2.5% MACE over next 6 weeks
Withdrawal Assessment of Alcohol
Withdrawal Assessment Completed?: Not applicable
Course
Orders/Labs/Results
Orders:
Orders
04/11/24 14:16
ECG [Electrocardiogram (*1)] Urgent
Reason for Study: Chest Pain
EKG- Treatment ONCE
04/11/24 14:38
Complete Blood Count/With Diff Urgent
Comprehensive Metabolic Panel Urgent
Troponin I Urgent
04/11/24 18:19
Electrocardiogram (*1) Urgent
Reason for Study: Chest Pain
EKG- Treatment ONCE
04/11/24 18:28
D-Dimer Urgent
Troponin I Urgent
04/11/24 19:10
CT Chest PE Study Urgent
Comment:
Reason For Exam: chest pain, SOB
CT Head W/o Iv Contrast Urgent
Comment:
Reason For Exam: hallucinations, headache
Abnormal Lab Results
04/11/24 04/11/24
14:38 18:28
RBC 4.29 L 10^6/uL
(4.70-6.10)
Hgb 10.7 L g/dL
(13.0-18.0)
Hct 34.1 L %
(39.0-52.0)
MCV 79.5 L fL
(80.0-94.0)
MCH 24.9 L pg
(27.0-31.0)
MCHC 31.4 L g/dL
(33.0-37.0)
RDW 17.1 H %
(11.5-14.5)
Absolute Lymphs (auto) 0.6 L 10^3/uL
(1.2-3.4)
Immature Gran % 0.7 H %
(0-0.5)
Neutrophils % 77.8 H %
(42.2-75.2)
Lymphocytes % 9.6 L %
(20.5-51.1)
D-Dimer 1.12 H ug/mlFEU
(0.00-0.50)
Glucose 124 H mg/dl
(70-99)
Total Bilirubin 1.4 H mg/dl
(0.2-1.3)
Alkaline Phosphatase 158 H U/L
(38-126)
04/11/24 14:38
04/11/24 14:38
Vital Signs
Initial and Last Documented VS:
Initial Vital Signs
Temp Pulse Resp BP Pulse Ox
98.2 F 76 16 121/81 96
04/11/24 14:26 04/11/24 14:26 04/11/24 14:26 04/11/24 14:26 04/11/24 14:26
Last Documented Vital Signs
Temp Pulse Resp BP Pulse Ox
98.2 F 83 18 107/95 92
04/11/24 14:26 04/11/24 21:15 04/11/24 21:15 04/11/24 21:00 04/11/24 19:45
MDM/Problems Addressed
Differential Diagnosis Includes:
ACS/angina, PE, patient had CT scan done in November 02 which did not show any aneurysm or dissection so less concern for this, GERD/gastritis, arrhythmia, CVA
MDM/Problems Addressed:
68-year-old male presenting to the ER for a multitude of symptoms, some of which have been ongoing for an extended period of time, chest pain was worse last night which is what prompted patient to come to the ER. Patient is also seemingly most
concerned about the visual hallucinations he has been experiencing which he describes as shadows out of the peripheral vision, this has been ongoing for around 1 month and not any different today. Unclear as to if this has any relation to all of
the other symptoms patient presented with today. Labs were initiated on arrival which show a stable hemoglobin and otherwise unremarkable labs including negative troponin and a nonischemic EKG. Will add on a 3-hour troponin as well as D-dimer.
Patient requesting CT scan of the head which ultimately I do not feel will reveal any acute pathologies but will order pending D-dimer.
*Radiology
Radiology exam reviewed: radiology read reviewed
*Pulse Oximetry
Patient hypoxic: no
*EKG
Heart Rate: 87
Rate: normal
Rhythm: sinus
[place]: normal axis
Ischemia: no ischemia
*Society Reporter Interpretation
Rate: normal
Rhythm: sinus
*Critical Care Note
Total Time (30-74mins, 75-104mins- exclusive of procedures): Not Applicable
Data Reviewed
Review of Other/Old Records Reveals: Labs, Records and Discharge Summary
Patient Management
Social determinants of health affecting care: Living situation and Strong social support
Escalation/DeEscalation of care consider admission/obs:
Patient has 2 negative troponins and [address] of the chest does show mild coronary calcifications and aortic valve calcifications. Patient notes that he had been seen by cardiology recently and had no abnormal findings. I did ask if
he was scheduled to have an echocardiogram and patient states that there was talks about him doing this in the near future. CT of the head results were discussed with patient and daughter. I encouraged close follow-up with neurology. At this time
I do not have a specific etiology for the patient's symptoms however I do not suspect any emergent pathologies that patient is safe for continued outpatient management. Patient aware of return precautions to the ER. Stable for discharge home.
ED Attending Note
-
Portions of this chart may have been created with voice recognition software.� Occasional wrong word or��sound alike� substitutions may have occurred due to the inherent limitations of voice recognition software.
Discharge Plan
Departure
Patient Disposition: Home (Routine Discharge)
Date of Disposition: 04/11/24
Time of Disposition: 20:51
Patient with high blood pressure during this ER visit?: Yes
Discharge Problem:
Chest pain, Hallucinations
Instructions: Chest Pain CBC Follow Up
Prescriptions:
No Action
quetiapine 100 MG tablet
200 mg PO HS
pantoprazole 40 MG tablet,delayed release (DR/EC)
40 mg PO BID
oxybutynin chloride 5 MG tablet
5 mg PO HS
verapamil 240 MG tablet extended release
240 mg PO DAILY
atorvastatin 40 MG tablet
40 mg PO DAILY Qty: 1 0RF
riboflavin (vitamin B2) 100 mg Tablet
100 mg PO DAILY
cyanocobalamin (vitamin B-12) 1,000 mcg Tablet
1,000 mcg PO DAILY
duloxetine 30 mg Capsule,Delayed Release(Dr/Ec)
30 mg PO DAILY
duloxetine 60 mg Capsule,Delayed Release(Dr/Ec)
60 mg PO HS
metformin 500 MG tablet
500 mg PO BID@0800,1700
aspirin 81 mg Tablet,Delayed Release (Dr/Ec)
81 mg PO DAILY
gabapentin 300 mg Capsule
300 mg PO BID
Eliquis 5 mg Tablet
5 mg PO BID
azelastine 137 mcg (0.1 %) [place],Non-Aerosol
1 spray INTRANASAL BIDPRN PRN (Reason: congestion)
cholecalciferol (vitamin D3) [Vitamin D3] 50 mcg (2,000 unit) Tablet
50 mcg PO DAILY
insulin aspart U-100 100 unit/mL (3 mL) Insulin Pen
30 unit SC MEALS 30 Days Qty: 27 0RF
oxycodone 5 mg Tablet
5 mg PO Q8HPRN PRN (Reason: moderate-severe pain) 5 Days Qty: 15 0RF
Vancomycin [Vancocin] 2000 MG
0.9% Sodium Chloride 500 ml [Nss] 500 ML
270 mls/hr IV Q12H
Reason for use: Knee infection
Last day of antibiotics 02/27/2023
Ordered By: Ranjan Moyer DO
Last Taken: Unknown
Protocol: None
Protocol Text:
DOSING PER PHARMACY
Please contact pharmacy with any questions.
insulin degludec [Tresiba FlexTouch U-100] 100 unit/mL (3 mL) Insulin Pen
40 unit SC BID 30 Days Qty: 24 0RF
Referrals:
Tiana Jasso MD [Family Provider] -
Interventions
Interventions:
*Risk Screen - Suicide Last Done: 04/11/24 17:36
*General Assessment Last Done: 04/11/24 17:36
*Neglect/Abuse Screening Last Done: 04/11/24 17:36
*ED COVID-19 Vaccine History Last Done: 04/11/24 17:36
*Nursing Disposition Last Done: 04/11/24 21:29
ED- Cardiac Assessment Last Done: 04/11/24 17:36
Discharge Date and Time
Discharge Date/Time: 04/11/24 21:30
Print Language: PALAUAN
[2024-04-11 18:51] LABS: D-Dimer 1.12 ug/mlFEU (0.00-0.50)
[2024-04-11 19:00] VITALS: BP 124/58
[2024-04-11 19:03] LABS: Troponin I < 0.012 ng/ml
[2024-04-11 21:00] VITALS: BP 107/95
== END 2024-04-11 21:30 | disposition home or self-care (01) ==
LOC: EMR 14:16
PROVIDERS: Physician Assistant Medical; Student in an Organized Health Care Education/Training Program; EMERGENCY PHYSICIAN Emergency Medicine; FAMILY PHYSICIAN Internal Medicine; REFERRING PHYSICIAN Internal Medicine Cardiovascular Disease
DX: R07.89 Other chest pain (principal); R44.3 Hallucinations, unspecified; K21.9 Gastro-esophageal reflux disease without esophagitis; I10 Essential (primary) hypertension; E78.00 Pure hypercholesterolemia, unspecified; E11.9 Type 2 diabetes mellitus without complications; F32.A Depression, unspecified; G47.30 Sleep apnea, unspecified; I25.10 Atherosclerotic heart disease of native coronary artery without angina pectoris; Z82.49 Family history of ischemic heart disease and other diseases of the circulatory system; Z86.73 Personal history of transient ischemic attack (TIA), and cerebral infarction without residual deficits; Z96.653 Presence of artificial knee joint, bilateral
CPT/HCPCS: 99284; 70450; 71275; 80053; 84484; 85025; 85379; 93005; Q9967

== ENCOUNTER → 2024-04-12 10:44 | Outpatient (REF) | payer MEDICARE, OTHER, SELFPAY ==
[2024-04-12 13:47] LABS: Erythrocyte Sed Rate 48 mm/hour (0-20)
== END ==
LOC: HWLAB 10:44
PROVIDERS: ATTENDING PHYSICIAN Physician Assistant Surgical; FAMILY PHYSICIAN Internal Medicine
DX: Z47.89 Encounter for other orthopedic aftercare (principal)
CPT/HCPCS: 36415; 85652; 86140

== ENCOUNTER → 2024-04-14 13:52 | Outpatient (REF) | payer MEDICARE, OTHER, SELFPAY | LOC: REG 13:52 | PROVIDERS: ATTENDING PHYSICIAN Physician Assistant Surgical; FAMILY PHYSICIAN Internal Medicine | DX: M25.461 Effusion, right knee (principal) | CPT/HCPCS: 87015; 87070; 87075; 87205 ==

== ENCOUNTER → 2024-04-27 11:49 | Outpatient (REF) | payer MEDICARE, OTHER, SELFPAY ==
[2024-04-27 12:00] VITALS: BP_SYST 85
== END ==
LOC: RADI 11:49
PROVIDERS: ATTENDING PHYSICIAN Internal Medicine Infectious Disease; FAMILY PHYSICIAN Internal Medicine
DX: M00.861 Arthritis due to other bacteria, right knee (principal)
CPT/HCPCS: 36573

== ENCOUNTER 2024-05-09 09:01 | Outpatient (RCR) | payer MEDICARE, OTHER, SELFPAY ==
[2024-04-27 13:39] VITALS: BP 140/78
[2024-04-27] MEDS: CUBICIN 126 MG IV (13:58)
[2024-04-28] MEDS: CUBICIN 126 MG IV (10:26)
[2024-04-28 10:30] VITALS: BP 138/74
[2024-04-28 14:24] VITALS: BP 111/78
[2024-04-29 10:02] VITALS: BP 146/73
[2024-04-29] MEDS: CUBICIN 126 MG IV (10:06)
[2024-04-30 07:27] VITALS: BP 131/74
[2024-04-30] MEDS: CUBICIN 126 MG IV (07:29)
[2024-04-30 08:07] VITALS: BP 136/69
[2024-05-01] MEDS: CUBICIN 126 MG IV (07:09)
[2024-05-01 07:14] VITALS: BP 138/78
[2024-05-02] MEDS: CUBICIN 126 MG IV (09:40)
[2024-05-02 09:45] VITALS: BP 159/86
[2024-05-02 09:49] LABS: % Basophils 0.4 % (0-2); % Eosinophils 6.7 % (0-6); % Immature Granulocytes 0.4 % (0-0.5); % Monocytes 5.7 % (1.7-9.3); % Neutrophils 75.8 % (42.2-75.2); Absolute Eosinophils 0.3 10^3/uL (0-0.7); Absolute Lymphocytes 0.5 10^3/uL (1.2-3.4); Absolute Monocytes 0.3 10^3/uL (0.1-0.6); Absolute Neutrophils 3.7 10^3/uL (1.4-6.5); Hematocrit 32.1 % (39.0-52.0); Hemoglobin 10.1 g/dL (13.0-18.0); Mean Corp Hgb Conc. 31.5 g/dL (33.0-37.0); Mean Corpuscular Hgb 25.4 pg (27.0-31.0); Mean Corpuscular Volume 80.9 fL (80.0-94.0); Platelet Count 213 10^3/uL (130-400); Red Blood Cell Count 3.97 10^6/uL (4.70-6.10); Red Cell Dist. Width 17.3 % (11.5-14.5); White Blood Cell Count 4.9 10^3/uL (4.8-10.8)
[2024-05-02 10:23] LABS: ALT (SGPT) 14 U/L (0-50); AST (SGOT) 24 U/L (17-59); Albumin 3.3 g/dl (3.5-5.0); Alkaline Phosphatase 122 U/L (38-126); Blood Urea Nitrogen 7 mg/dl (9-20); Carbon Dioxide 26 mmol/L (22-30); Creatine Phosphokinase 56 U/L (55-170); Glucose 110 mg/dl (70-99); Potassium 3.7 mmol/L (3.5-5.1); Sodium 137 mmol/L (135-145); Total Bilirubin 0.8 mg/dl (0.2-1.3); eGFR > 60.00
[2024-05-02 10:28] LABS: Erythrocyte Sed Rate 63 mm/hour (0-20)
[2024-05-02 11:42] LABS: Chloride 104 mmol/L (98-107)
[2024-05-03 09:15] VITALS: BP 164/85
[2024-05-03] MEDS: CUBICIN 126 MG IV (09:24)
[2024-05-04 08:44] VITALS: BP 147/75
[2024-05-04] MEDS: CUBICIN 126 MG IV (08:45)
[2024-05-05 08:36] VITALS: BP 155/87
[2024-05-05] MEDS: CUBICIN 126 MG IV (08:41)
[2024-05-06 09:05] VITALS: BP 157/86
[2024-05-06] MEDS: CUBICIN 126 MG IV (09:21)
[2024-05-07] MEDS: CUBICIN 126 MG IV (07:15)
[2024-05-07 08:41] VITALS: BP 152/84
[2024-05-08] MEDS: CUBICIN 126 MG IV (07:15)
[2024-05-08 08:43] VITALS: BP 146/83
[2024-05-09] MEDS: CUBICIN 126 MG IV (09:22)
[2024-05-09 09:26] LABS: % Basophils 0.4 % (0-2); % Immature Granulocytes 0.4 % (0-0.5); % Lymphocytes 11.7 % (20.5-51.1); % Monocytes 7.4 % (1.7-9.3); % Neutrophils 72.1 % (42.2-75.2); Absolute Eosinophils 0.4 10^3/uL (0-0.7); Absolute Lymphocytes 0.5 10^3/uL (1.2-3.4); Absolute Monocytes 0.3 10^3/uL (0.1-0.6); Absolute Neutrophils 3.3 10^3/uL (1.4-6.5); Hematocrit 32.8 % (39.0-52.0); Hemoglobin 10.4 g/dL (13.0-18.0); Mean Corp Hgb Conc. 31.7 g/dL (33.0-37.0); Mean Corpuscular Hgb 25.4 pg (27.0-31.0); Mean Corpuscular Volume 80.2 fL (80.0-94.0); Mean Platelet Volume 9.4 fL (7.4-10.4); Platelet Count 223 10^3/uL (130-400); Red Blood Cell Count 4.09 10^6/uL (4.70-6.10); Red Cell Dist. Width 16.4 % (11.5-14.5); White Blood Cell Count 4.6 10^3/uL (4.8-10.8)
[2024-05-09 09:40] VITALS: BP 154/92
[2024-05-09 10:10] LABS: ALT (SGPT) 34 U/L (0-50); AST (SGOT) 37 U/L (17-59); Albumin 3.4 g/dl (3.5-5.0); Alkaline Phosphatase 147 U/L (38-126); Blood Urea Nitrogen 8 mg/dl (9-20); Calcium 9.1 mg/dl (8.4-10.2); Carbon Dioxide 28 mmol/L (22-30); Chloride 104 mmol/L (98-107); Creatine Phosphokinase 64 U/L (55-170); Glucose 187 mg/dl (70-99); Potassium 4.1 mmol/L (3.5-5.1); Sodium 141 mmol/L (135-145); Total Bilirubin 0.8 mg/dl (0.2-1.3); eGFR > 60.00
[2024-05-09 10:26] LABS: Erythrocyte Sed Rate 51 mm/hour (0-20)
== END 2024-05-09 14:22 | disposition home or self-care (01) ==
LOC: OID 09:01
PROVIDERS: ATTENDING PHYSICIAN Internal Medicine Infectious Disease; FAMILY PHYSICIAN Internal Medicine
DX: T85.898A Other specified complication of other internal prosthetic devices, implants and grafts, initial encounter (principal); T84.50XA Infection and inflammatory reaction due to unspecified internal joint prosthesis, initial encounter (principal); T84.50XD Infection and inflammatory reaction due to unspecified internal joint prosthesis, subsequent encounter (principal); T84.54XA Infection and inflammatory reaction due to internal left knee prosthesis, initial encounter (principal); T84.53XA Infection and inflammatory reaction due to internal right knee prosthesis, initial encounter (principal); Y83.1 Surgical operation with implant of artificial internal device as the cause of abnormal reaction of the patient, or of later complication, without mention of misadventure at the time of the procedure; Z96.651 Presence of right artificial knee joint
CPT/HCPCS: 36573; 36591; 80053; 82550; 85025; 85652; 86140; 96365; 99195; J0878

== ENCOUNTER 2024-06-02 08:10 | Outpatient (RCR) | payer MEDICARE, OTHER, SELFPAY ==
[2024-05-10 08:30] VITALS: BP 157/82
[2024-05-10] MEDS: CUBICIN 126 MG IV (08:55)
[2024-05-11] MEDS: CUBICIN 126 MG IV (08:50)
[2024-05-11 09:00] VITALS: BP 165/89
[2024-05-12 07:45] VITALS: BP 172/99
[2024-05-12] MEDS: CUBICIN 126 MG IV (08:14)
[2024-05-12 08:45] VITALS: BP 142/86
[2024-05-13 07:45] VITALS: BP 140/81
[2024-05-13] MEDS: CUBICIN 126 MG IV (08:17)
[2024-05-14] MEDS: CUBICIN 126 MG IV (07:11)
[2024-05-14 07:15] VITALS: BP 154/85
[2024-05-15 07:15] VITALS: BP 152/84
[2024-05-15] MEDS: CUBICIN 126 MG IV (07:18)
[2024-05-16 09:24] VITALS: BP 166/89
[2024-05-16 09:40] LABS: % Basophils 0.5 % (0-2); % Eosinophils 3.3 % (0-6); % Immature Granulocytes 0.4 % (0-0.5); % Monocytes 6.7 % (1.7-9.3); % Neutrophils 79.1 % (42.2-75.2); Absolute Eosinophils 0.2 10^3/uL (0-0.7); Absolute Lymphocytes 0.6 10^3/uL (1.2-3.4); Absolute Monocytes 0.4 10^3/uL (0.1-0.6); Absolute Neutrophils 4.3 10^3/uL (1.4-6.5); Hematocrit 33.4 % (39.0-52.0); Hemoglobin 10.5 g/dL (13.0-18.0); Mean Corp Hgb Conc. 31.4 g/dL (33.0-37.0); Mean Corpuscular Hgb 25.2 pg (27.0-31.0); Mean Corpuscular Volume 80.3 fL (80.0-94.0); Mean Platelet Volume 9.4 fL (7.4-10.4); Platelet Count 255 10^3/uL (130-400); Red Blood Cell Count 4.16 10^6/uL (4.70-6.10); Red Cell Dist. Width 16.6 % (11.5-14.5); White Blood Cell Count 5.5 10^3/uL (4.8-10.8)
[2024-05-16] MEDS: CUBICIN 126 MG IV (09:40)
[2024-05-16 10:09] LABS: ALT (SGPT) 29 U/L (0-50); AST (SGOT) 29 U/L (17-59); Albumin 3.5 g/dl (3.5-5.0); Alkaline Phosphatase 157 U/L (38-126); Blood Urea Nitrogen 9 mg/dl (9-20); Calcium 9.4 mg/dl (8.4-10.2); Carbon Dioxide 29 mmol/L (22-30); Chloride 105 mmol/L (98-107); Creatine Phosphokinase 87 U/L (55-170); Glucose 207 mg/dl (70-99); Iron 42 ug/dl (49-181); Potassium 3.8 mmol/L (3.5-5.1); Sodium 140 mmol/L (135-145); Total Bilirubin 0.8 mg/dl (0.2-1.3); Total Protein 6.1 g/dl (6.3-8.2); eGFR > 60.00
[2024-05-16 10:18] LABS: Percent Saturation 11 % (20-50); Total Iron Binding Capacity 356 ug/dl (261-462)
[2024-05-16 10:43] LABS: Ferritin 16.4 ng/ml (17.9-464.0)
[2024-05-16 10:45] LABS: Erythrocyte Sed Rate 24 mm/hour (0-20)
[2024-05-16 10:59] LABS: Nucleated Red Blood Cells % 0 % (-); Reticulocyte Count 2.2 % (0.4-2.8)
[2024-05-16 11:14] LABS: Folate 6.6 ng/ml (2.76-20)
[2024-05-17 09:28] VITALS: BP 137/99
[2024-05-17] MEDS: CUBICIN 126 MG IV (09:34)
[2024-05-18 07:52] VITALS: BP 171/89
[2024-05-18] MEDS: CUBICIN 126 MG IV (08:22)
[2024-05-19 08:15] VITALS: BP 169/94
[2024-05-19] MEDS: CUBICIN 126 MG IV (08:23)
[2024-05-20] MEDS: CUBICIN 126 MG IV (08:23)
[2024-05-20 08:28] VITALS: BP 149/75
[2024-05-21 07:50] VITALS: BP 135/70
[2024-05-21] MEDS: CUBICIN 126 MG IV (07:58)
[2024-05-22] MEDS: CUBICIN 126 MG IV (07:30)
[2024-05-22 07:37] VITALS: BP 166/95
[2024-05-23 07:59] VITALS: BP 166/87
[2024-05-23 08:15] LABS: % Basophils 0.4 % (0-2); % Eosinophils 3.3 % (0-6); % Immature Granulocytes 0.4 % (0-0.5); % Lymphocytes 13.2 % (20.5-51.1); % Monocytes 5.9 % (1.7-9.3); % Neutrophils 76.8 % (42.2-75.2); Absolute Eosinophils 0.2 10^3/uL (0-0.7); Absolute Lymphocytes 0.7 10^3/uL (1.2-3.4); Absolute Monocytes 0.3 10^3/uL (0.1-0.6); Absolute Neutrophils 4.2 10^3/uL (1.4-6.5); Hematocrit 33.5 % (39.0-52.0); Hemoglobin 10.4 g/dL (13.0-18.0); Mean Corpuscular Hgb 25.3 pg (27.0-31.0); Mean Corpuscular Volume 81.5 fL (80.0-94.0); Mean Platelet Volume 9.8 fL (7.4-10.4); Platelet Count 223 10^3/uL (130-400); Red Blood Cell Count 4.11 10^6/uL (4.70-6.10); Red Cell Dist. Width 16.4 % (11.5-14.5); White Blood Cell Count 5.5 10^3/uL (4.8-10.8)
[2024-05-23] MEDS: CUBICIN 126 MG IV (08:16)
[2024-05-23 09:54] LABS: ALT (SGPT) 18 U/L (0-50); AST (SGOT) 23 U/L (17-59); Albumin 3.8 g/dl (3.5-5.0); Alkaline Phosphatase 142 U/L (38-126); Blood Urea Nitrogen 10 mg/dl (9-20); Calcium 9.1 mg/dl (8.4-10.2); Carbon Dioxide 24 mmol/L (22-30); Chloride 105 mmol/L (98-107); Glucose 161 mg/dl (70-99); Potassium 3.8 mmol/L (3.5-5.1); Sodium 141 mmol/L (135-145); Total Bilirubin 0.6 mg/dl (0.2-1.3); Total Protein 6.2 g/dl (6.3-8.2); eGFR > 60.00
[2024-05-23 10:41] LABS: Erythrocyte Sed Rate 32 mm/hour (0-20)
[2024-05-23 13:12] LABS: Creatine Phosphokinase 66 U/L (55-170)
[2024-05-24 08:35] VITALS: BP 139/77
[2024-05-24] MEDS: CUBICIN 126 MG IV (08:47)
[2024-05-25 08:00] VITALS: BP 150/95
[2024-05-25] MEDS: CUBICIN 126 MG IV (08:08)
[2024-05-25 08:46] VITALS: BP 145/91
[2024-05-26 07:45] VITALS: BP 157/87
[2024-05-26] MEDS: CUBICIN 126 MG IV (07:55)
[2024-05-27 07:45] VITALS: BP 127/82
[2024-05-27] MEDS: CUBICIN 126 MG IV (08:17)
[2024-05-28 07:20] VITALS: BP 160/84
[2024-05-28] MEDS: CUBICIN 126 MG IV (07:20)
[2024-05-29 07:30] VITALS: BP 176/90
[2024-05-29] MEDS: CUBICIN 126 MG IV (07:48)
[2024-05-30 08:00] VITALS: BP 156/82
[2024-05-30 08:17] LABS: % Basophils 0.4 % (0-2); % Eosinophils 3.5 % (0-6); % Immature Granulocytes 0.4 % (0-0.5); % Lymphocytes 10.3 % (20.5-51.1); % Monocytes 7.5 % (1.7-9.3); % Neutrophils 77.9 % (42.2-75.2); Absolute Eosinophils 0.2 10^3/uL (0-0.7); Absolute Lymphocytes 0.6 10^3/uL (1.2-3.4); Absolute Monocytes 0.4 10^3/uL (0.1-0.6); Absolute Neutrophils 4.3 10^3/uL (1.4-6.5); Hematocrit 31.6 % (39.0-52.0); Hemoglobin 10.1 g/dL (13.0-18.0); Mean Corpuscular Hgb 25.8 pg (27.0-31.0); Mean Corpuscular Volume 80.8 fL (80.0-94.0); Mean Platelet Volume 9.5 fL (7.4-10.4); Platelet Count 195 10^3/uL (130-400); Red Blood Cell Count 3.91 10^6/uL (4.70-6.10); Red Cell Dist. Width 15.9 % (11.5-14.5); White Blood Cell Count 5.5 10^3/uL (4.8-10.8)
[2024-05-30] MEDS: CUBICIN 126 MG IV (08:27)
[2024-05-30 09:16] LABS: ALT (SGPT) 18 U/L (0-50); AST (SGOT) 23 U/L (17-59); Albumin 3.4 g/dl (3.5-5.0); Alkaline Phosphatase 140 U/L (38-126); Blood Urea Nitrogen 12 mg/dl (9-20); Calcium 9.2 mg/dl (8.4-10.2); Carbon Dioxide 26 mmol/L (22-30); Chloride 102 mmol/L (98-107); Glucose 211 mg/dl (70-99); Sodium 138 mmol/L (135-145); Total Bilirubin 0.7 mg/dl (0.2-1.3); Total CK 103 U/L (55-170); Total Protein 6.1 g/dl (6.3-8.2); eGFR > 60.00
[2024-05-30 09:27] LABS: Erythrocyte Sed Rate 31 mm/hour (0-20)
[2024-05-30 09:47] LABS: CKMB 1.5 ng/ml (0.0-3.4)
[2024-05-31 08:00] VITALS: BP 149/82
[2024-05-31] MEDS: CUBICIN 126 MG IV (08:09)
[2024-06-01 08:49] VITALS: BP 164/86
[2024-06-01] MEDS: CUBICIN 126 MG IV (08:52)
[2024-06-02] MEDS: CUBICIN 126 MG IV (08:48)
[2024-06-02 09:07] VITALS: BP 126/83
== END 2024-06-08 23:59 | disposition home or self-care (01) ==
LOC: OID 08:10
PROVIDERS: ATTENDING PHYSICIAN Internal Medicine Infectious Disease; FAMILY PHYSICIAN Internal Medicine
DX: T84.50XA Infection and inflammatory reaction due to unspecified internal joint prosthesis, initial encounter (principal); I10 Essential (primary) hypertension (principal); Y83.1 Surgical operation with implant of artificial internal device as the cause of abnormal reaction of the patient, or of later complication, without mention of misadventure at the time of the procedure; T84.50XD Infection and inflammatory reaction due to unspecified internal joint prosthesis, subsequent encounter; T85.898A Other specified complication of other internal prosthetic devices, implants and grafts, initial encounter; T84.54XA Infection and inflammatory reaction due to internal left knee prosthesis, initial encounter; T84.53XA Infection and inflammatory reaction due to internal right knee prosthesis, initial encounter; Z01.812 Encounter for preprocedural laboratory examination; Z96.651 Presence of right artificial knee joint
CPT/HCPCS: 36591; 80053; 82550; 82553; 82728; 82746; 83540; 83550; 85025; 85045; 85652; 86140; 96365; J0878

== ENCOUNTER → 2024-06-02 11:46 | Outpatient (REF) | payer MEDICARE, OTHER, SELFPAY ==
[2024-06-03 09:48] LABS: Glycohemoglobin (HgbA1c) 7.7 % (4.0-5.6)
== END ==
LOC: HWLAB 11:46
PROVIDERS: ATTENDING PHYSICIAN Internal Medicine; REFERRING PHYSICIAN Internal Medicine
DX: Z01.818 Encounter for other preprocedural examination (principal); E11.9 Type 2 diabetes mellitus without complications
CPT/HCPCS: 36415; 83036